=== PATIENT | male | born 1940 | race Caucasian/White ===

== ENCOUNTER 2019-11-05 18:19 | Inpatient (IN) | payer MEDICARE, OTHER ==
[~2019-11-05] VITALS: Ht 167.6 cm; Wt 67.6 kg
--- NOTE | 2019-11-05 19:11 | NUR ---
MEDICALLY CLEARED BY DR ELKINS.
[2019-11-05] MEDS ORDERED: MAGNESIUM HYDROXIDE 30 ML LIQUID UDC PO PRN (20:15)
--- NOTE | 2019-11-05 20:15 | NUR ---
Admit Pt to MHU under the care of Dr. Acharya and Dr. Banuelos.
[2019-11-05] MEDS ORDERED: LEVOTHYROXINE PO (20:16)
--- NOTE | 2019-11-05 20:26 | NUR ---
TRANSFERED TO [facility] VIA [facility]
--- NOTE | 2019-11-06 00:48 | NUR ---
GPS/Rn - Admit 79y/o male pt to MHU from ER, under the care Dr. Acharya, and Dr. Banuelos with Dx of Psychosis. Pt was accompanied by ER staff. Pt admitted on 5150 for GD. Upon face to face assessment/interview pt was very frantic and angry with staffs and was very irritated and saying he will pat this place over and over again. Pt was fixated on his belongings and refused to cooperate with staffs for proper inspection and or documentation. Pt became very angry when staffs told him he can not keep his belt on. Pt refused to sign admission docs and insist on keeping his things or have them in a safe box in front of him. Pt was reassured and had him signed his belongings and placed in envelop and sealed in front of him. Per Hold, Pt was found walking down the road and stated someone was trying to kill him, pt was delusional and was not able to held a conversation without paranoid and delusional. Pt was leaving in an unfit condition and was not able to care for self. Pt seems to have some insight into why he is hospitalized but insist he was leaving well and denied hearing voice. Hx are: BPH, Schizophrenia disorder, Psychosis. Possible Dementia with behavior disturbance. Pt Rights handbook and Advisement given and unit rules explained. Pt was still angry and refused handbook, will place in his bed side table for later review. Q/15mins head check initiated and safety precaution in place.
[2019-11-06 01:44] VITALS: BP 126/63
--- NOTE | 2019-11-06 06:00 | NUR ---
Dr Ellison paged through 9+ regarding medication reconciliation. Awaiting call back.
[2019-11-06] MEDS: LEVOTHYROXINE SODIUM 50 MCG TABLET PO SCH (06:43)
[2019-11-06 07:30] VITALS: BP 123/68
--- NOTE | 2019-11-06 11:15 | NUR ---
WEN Family Contact: This appeals writer contacted pt's brother to discuss treatment plan and discharge plan. Chris lives in [place] but is still involved in pt's care. Per pt's brother Chris ([phone]) stated pt resides in [facility]. Per brother, he would want pt to transition to a nursing facility. Per brother, he stated APS is involved and his corrections caseworker is Fuad ([phone]). Chris stated patient has isolated himself from family. Chris provided this appeals writer pt's daughters phone number Sabar ([phone]). This appeals writer contacted pt's daughter Sabra ([phone]) and discussed treatment plan and discharge plan. Sabra would want pt to transition to a halfway. She stated pt has been evicted from his home 3 days ago. Addendum: 11/06/19 at 1309 by WEN BURCIAGA Sabra is property owners daughter ([phone]) not pt's daughter.
--- NOTE | 2019-11-06 11:15 | NUR ---
WEN Initial Discharge Plan: Patient currently resides at [address] [address] ([phone]). Per pt's brother Chris ([phone]) stated pt resides in [place]. Per brother, he would want pt to transition to a nursing facility. Per brother, he stated APS is involved and his caseworker protective services is Fuad ([phone]). This selling underwriter contacted APS caseworker protective services Fuad ([phone]) and left a voicemail. Pt has a APS case open. This selling underwriter contacted pt's daughter Sabra ([phone]) and discussed treatment plan and discharge plan. This selling underwriter will work with the MD, Treatment, and family to help coordinate proper discharge plan. Addendum: 11/06/19 at 1309 by WEN BURCIAGA Sabra is property owners daughter ([phone]) not pt's daughter.
--- NOTE | 2019-11-06 11:18 | NUR ---
APS Case: This science writer contacted pt's APS casework manager Fuad ([phone]) and left a voicemail.
--- NOTE | 2019-11-06 11:21 | NUR ---
Firearms Report: Transformation Architect completed and submitted a [employer] firearms report for 5150 grave disability certification. A copy of report has been placed in patient chart.
[2019-11-06 11:48] LABS: CREATININE 0.9 mg/dL (0.6-1.3); MAGNESIUM 1.8 mg/dL (1.8-2.4); PHOSPHOROUS 2.7 mg/dL (2.5-4.9); POTASSIUM 3.8 mmol/L (3.5-5.1)
[2019-11-06 12:40] LABS: BASOPHILS % (AUTO) 0.7 % (0.0-2.0); EOSINOPHILS # (AUTO) 0.3 K/uL (0.0-0.7); EOSINOPHILS % (AUTO) 6.1 % (0.0-7.0); HEMATOCRIT 36.6 % (36.7-47.1); HEMOGLOBIN 12.8 g/dL (12.5-16.3); LYMPHOCYTES # (AUTO) 0.9 K/uL (20.0-40.0); LYMPHOCYTES % (AUTO) 21.7 % (20.5-51.5); MEAN CORPUSCULAR HEMOGLOBIN 31.5 uug (23.8-33.4); MEAN CORPUSCULAR HGB CONC 35 g/dL (32.5-36.3); MONOCYTES # (AUTO) 0.5 K/uL (2.0-10.0); MONOCYTES % (AUTO) 11.2 % (0.0-11.0); NEUTROPHILS # (AUTO) 2.6 K/uL (1.8-8.9); NEUTROPHILS % (AUTO) 60.3 % (38.5-71.5); PLATELET COUNT (AUTO) 356 K/uL (152-348); RED BLOOD CELL COUNT(AUTO) 4.07 MIL/uL (4.06-5.63); WHITE BLOOD COUNT (AUTO) 4.3 K/uL (3.6-10.2)
--- NOTE | 2019-11-06 13:09 | NUR ---
SW Property Freight Rate Clerk: This automobile service writer spoke with property van owner operator Natalie ([phone]) who stated that pt can not return back and has been residing in a [place] behind her property. He has been residing since December 2018 and has not been paying rent. Natalie reported that they have filed for a restraining order. Natalie stated her daughter Sabra ([phone]) has the documents and will fax it to this automobile service writer.
[2019-11-06 14:05] LABS: *BILIRUBIN,URIN NEGATIVE (NEGATIVE); *BLOOD, URINE NEGATIVE (NEGATIVE); *CLARITY,URINE CLEAR (CLEAR); *COLOR,URINE YELLOW (YELLOW); *KETONES,URINE NEGATIVE (NEGATIVE); *UROBILINOGEN,URINE 0.2 E.U./dl (NORMAL); LEUKOCYTE ESTERASE ,URINE NEGATIVE (NEGATIVE); NITRITE, URINE NEGATIVE (NEGATIVE); UGLUCOSE NEGATIVE (NEGATIVE)
[2019-11-06 16:00] VITALS: BP 137/75
[2019-11-06] MEDS: risperiDONE 0.5 MG TABLET PO SCH (20:36)
--- NOTE | 2019-11-06 20:37 | NUR ---
Pt refused his Risperdal. Stating he will not take any medication that his doctor doesn't recommend. He said it makes him drowsy and not able to walk.Pt in no acute distress. Will continue to monitor.
[2019-11-06] MEDS: MAG HYDROX/AL HYDROX/SIMETH 30 ML LIQUID UDC PO PRN (20:46)
[2019-11-06 20:48] VITALS: BP 120/69
[2019-11-07] MEDS: TEMAZEPAM 7.5 MG CAPSULE PO PRN ×2 (00:55→23:50)
[2019-11-07] MEDS: LEVOTHYROXINE SODIUM 50 MCG TABLET PO SCH ×2 (02:44→06:50)
[2019-11-07] MEDS: LORAZEPAM 1 MG TABLET PO PRN ×2 (02:44→11:40)
--- NOTE | 2019-11-07 06:58 | NUR ---
PT SLEPT 4.30 HOURS. PT IN NO ACUTE DISTRESS. PRESCRIBED MEDICATION GIVEN AND PT TOLERATED IT WELL. PT GIVEN PRN MAALOX FOR UPSET STOMACH. PT CONDITION IMPROVED AFTER AN HOUR. PT ALSO GIVEN RESTORIL AT 0055H FOR PT IS PACING THE HALLWAY AND DISTURBING OTHER PT. AFTER AN HOUR PT WENT BACK TO HIS BED BUT STILL AWAKE. AT 0244H PT GIVEN ATIVAN FOR RESTLESSNESS, AND ANXIOUS. AFTER 2 HOURS PT SLEEPING QUIETLY ON HIS BED. .SAFETY AND COMFORT PROVIDED. WILL ENDORSE TO INCOMING NURSE FOR CONTINUITY OF CARE.
[2019-11-07 08:00] VITALS: BP 145/87
[2019-11-07] MEDS: risperiDONE 0.5 MG TABLET PO SCH ×2 (08:40→21:00)
--- NOTE | 2019-11-07 10:34 | NUR ---
[facility] Referral: This public relations writer faxed clinicals to Jimbo kearney from [facility] ([phone]) for review. This public relations writer sent H & P, medication list, and laboratory.
[2019-11-07] MEDS: MAG HYDROX/AL HYDROX/SIMETH 30 ML LIQUID UDC PO PRN ×2 (11:40→23:50)
--- NOTE | 2019-11-07 11:41 | NUR ---
WEN Property It Senior Software Engineer Java Contact: This senior underwriter received restraining order paperwork from property analyst business analysis Natalie's ([phone]) daughter Sabra ([phone]). This senior underwriter placed in chart.
--- NOTE | 2019-11-07 11:48 | NUR ---
SW Discharge Plan: This teletypewriter installer spoke with Jimbo kearney from [facility] ([phone]) who stated pt is accepted.
--- NOTE | 2019-11-07 15:01 | NUR ---
APS Report: This press writer made an APS report (Intake ID [id number]) through [facility] due to pt neglecting care.
[2019-11-07 15:10] VITALS: BP 134/96
--- NOTE | 2019-11-07 15:45 | NUR ---
Gps/Silver Plater- Walks around, gait occ. gets unsteady , able to correct own gat when walking . Patient not getting along with his roommate , constant redirections for safety.
[2019-11-07 20:00] VITALS: BP 150/84
--- NOTE | 2019-11-07 21:53 | NUR ---
Received patient from day shift, walking around in his room. First words out of patients mouth were " I am going to be leaving now, my truck is outside ". This patient is confused and needs frequent reorientation. Patient also refuses to take medications despite educating and encouraging compliance. Patient to be found somewhat restless and guarded. Continuing to monitor for safety and to provide orientation to the situation as needed. No acute behavioral issues noted at this time.
[2019-11-08] MEDS: LORAZEPAM 1 MG TABLET PO PRN (00:26)
[2019-11-08] MEDS: LEVOTHYROXINE SODIUM 50 MCG TABLET PO SCH (06:06)
--- NOTE | 2019-11-08 06:54 | NUR ---
Patient slept 4.45 hours last night. Continuously getting up and down to the bathroom. Patient refused medication this AM. Continue to monitor for safety and to encourage medication compliance.
[2019-11-08 07:30] VITALS: BP 111/67
[2019-11-08] MEDS: risperiDONE 0.5 MG TABLET PO SCH ×2 (09:39→20:38)
[2019-11-08] MEDS: MAG HYDROX/AL HYDROX/SIMETH 30 ML LIQUID UDC PO PRN (11:38)
[2019-11-08 16:00] VITALS: BP 121/78
[2019-11-08 20:17] VITALS: BP 98/61
[2019-11-09] MEDS: LEVOTHYROXINE SODIUM 50 MCG TABLET PO SCH (06:38)
[2019-11-09 07:30] VITALS: BP 108/64
[2019-11-09] MEDS: risperiDONE 0.5 MG TABLET PO SCH ×2 (08:34→20:28)
[2019-11-09 16:00] VITALS: BP 128/79
[2019-11-09] MEDS: MAG HYDROX/AL HYDROX/SIMETH 30 ML LIQUID UDC PO PRN (16:05)
[2019-11-09 20:24] VITALS: BP 96/68
--- NOTE | 2019-11-09 20:28 | NUR ---
Patient refused Risperdal due.
[2019-11-10] MEDS: LEVOTHYROXINE SODIUM 50 MCG TABLET PO SCH (06:07)
--- NOTE | 2019-11-10 06:43 | NUR ---
GPS/RN: Slept 5.30 hours. Presented complaint of gastric discomforts the start of shift but not due yet for the next dose, got upset when he did not get one. Been in and out his room but no complaint presented. Able to take his AM meds without no problem.
[2019-11-10 07:30] VITALS: BP 119/66
[2019-11-10] MEDS: risperiDONE 0.5 MG TABLET PO SCH ×2 (09:00→20:18)
[2019-11-10] MEDS: MAG HYDROX/AL HYDROX/SIMETH 30 ML LIQUID UDC PO PRN (16:33)
[2019-11-10 16:59] VITALS: BP 148/90
[2019-11-10 20:22] VITALS: BP 112/55
[2019-11-10] MEDS: TEMAZEPAM 7.5 MG CAPSULE PO PRN (21:05)
[2019-11-11] MEDS: LORAZEPAM 1 MG TABLET PO PRN (01:35)
[2019-11-11] MEDS: ACETAMINOPHEN 325 MG TABLET PO PRN (01:36)
--- NOTE | 2019-11-11 05:15 | NUR ---
Received patient last night standing in doorway of his room complaining he was hungry. Snack provided and patient went to bed. Patient has refused his routine medications but was asking for a ' Pill to help me sleep ". PRN medication given with little to no effect. Patient was noted to be up and down all night with multiple requests. Patient has poor impulse control. Continuing to monitor for safety, and behavior escalation. This patient is noncompliant with medication despite education and encouragement.
[2019-11-11] MEDS: LEVOTHYROXINE SODIUM 50 MCG TABLET PO SCH (05:53)
[2019-11-11 07:30] VITALS: BP 120/76
[2019-11-11] MEDS: risperiDONE 0.5 MG TABLET PO SCH ×2 (09:00→20:45)
--- NOTE | 2019-11-11 13:25 | NUR ---
GPS: Nursing Notes: Non-compliance With Medications: Patient is awake and responding to his name, poor anger management, resistant with nursing care, loud and pressured speech, gets easily irritable when redirected, refusing his medications, believes that there is nothing wrong with him, stated "I am not crazy....", explained the pros and cons of medication, but continue to refuse the medication, argumentative with his roommate, stating that his roommate is taking his staff, redirected and setting limits, unable to formulate a viable plan for self care, continue with treatment plan.
--- NOTE | 2019-11-11 14:14 | NUR ---
Property Web Knitter Contact: Sabra ([phone]), property automotive glass mechanic, called and inquired about the pts discharge plan and inquired about whether or not it will be possible for the pt to return to the premises because she wanted to know if she should pursue with her charges. WEN informed her that the plan is to send the pt to SNF and that she cannot guarantee if he will leave or where he will go.
--- NOTE | 2019-11-11 14:20 | NUR ---
Family Contact: Pt's brother Chris ([phone]) called the SW and asked the SW where the pt is going to be discharged to. SW stated that she does not have a date at this time but the plan is for the pt to be discharged to [facility]. SW provided the pts brother with an address and a phone number.
[2019-11-11 15:45] VITALS: BP 102/64
[2019-11-11] MEDS: MAG HYDROX/AL HYDROX/SIMETH 30 ML LIQUID UDC PO PRN (19:28)
[2019-11-11 20:31] VITALS: BP 112/62
--- NOTE | 2019-11-12 00:22 | NUR ---
Patient first observed pacing the hallway with disheveled appearance, alert and oriented to name, time, and situation. Patient refused all HS medication. Requires frequent redirection. Vitals wnl, denies pain. Patient is unable to formulate care for self. Continue to monitor Q 15 minutes as well as provide a safe environment.
[2019-11-12] MEDS: LEVOTHYROXINE SODIUM 50 MCG TABLET PO SCH (06:15)
[2019-11-12 07:30] VITALS: BP 122/59
[2019-11-12] MEDS: risperiDONE 0.5 MG TABLET PO SCH ×2 (09:00→21:00)
--- NOTE | 2019-11-12 11:50 | NUR ---
Family Contact: Pt's brother Chris ([phone]) called the SW and the SW informed him that the pts MD filed for a Riese as the pt has not been taking his medications. SW stated that the pt remains delusional, paranoid and disoriented. SW stated that if the pt becomes riesed he many show improvement after a few days and then be discharged to [facility].
[2019-11-12] MEDS: MAG HYDROX/AL HYDROX/SIMETH 30 ML LIQUID UDC PO PRN (11:56)
--- NOTE | 2019-11-12 13:56 | NUR ---
GPS: Nursing Notes: Non-compliance With Medications: Patient awake and responding to his name, poor anger management, resistant with nursing care, believes that the staff is crazy, "I am not taking a shower.. You are crazy..", continue to refuse his Risperdal PO, stated "My doctor told me not to take that medication, "I am not crazy.. I can only take Synthroid...", unable to formulate a viable plan for self care, loud and angry affect, continue with treatment plan.
[2019-11-12 16:28] VITALS: BP 126/78
[2019-11-12 19:57] VITALS: BP 114/50
--- NOTE | 2019-11-12 21:25 | NUR ---
patient noted awake A/O x 2. continue refusing Risperdal. Will continue to offer. Temazepam 7.5 mg PO PRN was offered to patient and he was able to take PO PRN medication. Safety and fall precaution in place. V/S stable. Pt is reassured for his safety. will continue to monitor.
--- NOTE | 2019-11-12 22:00 | NUR ---
Patient noted most of the time in his room. he is noted A/O x 2. Continue Refusing Risperdal QHS. patient was provided with education about the importance of taking prescribed medication to improve his sxs. yet, refused. pt is easily redirectable. Denies SI/HI/VH/AH he is able to verbalized feelings.
[2019-11-12] MEDS: TEMAZEPAM 7.5 MG CAPSULE PO PRN (22:23)
[2019-11-12] MEDS: LORAZEPAM 1 MG TABLET PO PRN (23:27)
--- NOTE | 2019-11-13 03:55 | NUR ---
patient noted in the hallway asking for multiple requests. "I need my clothes, I need to shave". "They are already outside, you just need to open the door." Patient was redirected, but he stated, "My friends are listening to our conversation, They know when to come in". Patient noted delusional, he requires multiple redirections. will continue to monitor.
[2019-11-13] MEDS: LEVOTHYROXINE SODIUM 50 MCG TABLET PO SCH (07:01)
[2019-11-13 07:30] VITALS: BP 117/60
[2019-11-13 07:44] LABS: CREATININE 0.9 mg/dL (0.6-1.3); POTASSIUM 4.3 mmol/L (3.5-5.1)
[2019-11-13 07:50] LABS: BASOPHILS % (AUTO) 0.2 % (0.0-2.0); EOSINOPHILS # (AUTO) 0.2 K/uL (0.0-0.7); HEMATOCRIT 42.6 % (36.7-47.1); HEMOGLOBIN 14.4 g/dL (12.5-16.3); LYMPHOCYTES # (AUTO) 1.3 K/uL (20.0-40.0); LYMPHOCYTES % (AUTO) 27.3 % (20.5-51.5); MEAN CORPUSCULAR HEMOGLOBIN 30.7 uug (23.8-33.4); MEAN CORPUSCULAR HGB CONC 34 g/dL (32.5-36.3); MEAN CORPUSCULAR VOLUME 90.8 fL (73.0-96.2); MONOCYTES # (AUTO) 0.5 K/uL (2.0-10.0); MONOCYTES % (AUTO) 10.9 % (0.0-11.0); NEUTROPHILS # (AUTO) 2.8 K/uL (1.8-8.9); NEUTROPHILS % (AUTO) 56.6 % (38.5-71.5); PLATELET COUNT (AUTO) 241 K/uL (152-348); RED BLOOD CELL COUNT(AUTO) 4.69 MIL/uL (4.06-5.63); WHITE BLOOD COUNT (AUTO) 4.9 K/uL (3.6-10.2)
[2019-11-13] MEDS: risperiDONE 0.5 MG TABLET PO SCH (09:00)
[2019-11-13] MEDS: MAG HYDROX/AL HYDROX/SIMETH 30 ML LIQUID UDC PO PRN ×2 (14:51→21:06)
[2019-11-13 16:00] VITALS: BP 105/52
[2019-11-13] MEDS ORDERED: HALOPERIDOL LACTATE 5 MG/1 ML VIAL IM PRN (18:30)
[2019-11-13 19:57] VITALS: BP 117/79
--- NOTE | 2019-11-13 20:20 | NUR ---
Per Dr Acharya, it is okay to change time of medication form Haldol 1mg PO TID to Haldol 1mg PO BID and QHS. order was noted. will continue to monitor,
--- NOTE | 2019-11-13 20:36 | NUR ---
Received patient in the hallway, he is noted A/O x 1. He is able to ambulate with slow but steady gait. He is noted hyperverbal, paranoid ideation, rambling about different things. asking to be shaved. Patient is somewhat redirectable. He is reassured for his safety. safety and fall precaution in places. V/S stable at this time. Will continue to monitor.
[2019-11-13] MEDS: TEMAZEPAM 7.5 MG CAPSULE PO PRN (21:33)
--- NOTE | 2019-11-13 22:00 | NUR ---
Patient Continue Refusing Haldol 1mg PO QHS. he threw the pill on the floor. Patient was provided with education about the importance of taking prescribed medication to improve his sxs. Pt is reise so, if he continue refusing PO haldol, he will get the Haldol 1mg IM as prescribed by Dr Acharya. pt was made aware of that and his reise. pt is easily irritable, continue hyperverbal. "No, I will not take anything that will alter my mind". "You are not injecting anything on me, I will fight". Pt requires multiple redirections.
[2019-11-13] MEDS: HALOPERIDOL 1 MG TABLET PO SCH (23:19)
--- NOTE | 2019-11-13 23:20 | NUR ---
Patient continue refusing Haldol 1mg PO QHS. Haldol 1mg IM was prepared. Security staff was called to assist with the injection has patient got aggressive. then, he stated, "Okay, I will take the pill, give it to me, I don't want the injection". pt was able to comply with Haldol 1mg PO. we will continue to monitor closely.
[2019-11-14] MEDS: LEVOTHYROXINE SODIUM 50 MCG TABLET PO SCH (06:23)
--- NOTE | 2019-11-14 06:46 | NUR ---
Patient slept for approx 2.30 hrs through the night. He was observed coming in-and-out of his room throughout the night. He refused Ativan 1mg PO PRN. will continue to monitor.
[2019-11-14 07:30] VITALS: BP 117/71
[2019-11-14] MEDS ORDERED: HALOPERIDOL 1 MG TABLET PO SCH (09:00)
[2019-11-14] MEDS: HALOPERIDOL 1 MG TABLET PO SCH ×3 (09:28→20:01)
[2019-11-14 16:21] VITALS: BP 131/69
--- NOTE | 2019-11-14 17:00 | NUR ---
Gps/Poultry Pathologist- Remains with hesitancy to take his routine haldol, , claimed he does not need it " my Doctor will go to senior living including all of you, i am calling the Tip Printer ".Reviewed with pt. rationale of his med. patient does not want to listen , instead argues with the staff., irritable, yelling at the staff.
--- NOTE | 2019-11-15 05:09 | NUR ---
Patient slept on and off last night. Up during the night with food requests. Patient is paranoid about some of the other patients taking his stuff. Patient was seen talking to self, when asked who he was talking to, he stated " The monitoring station". Physiology Teacher had a difficult time getting the patient to take his PO Psychiatric medication last night. Patient was argumentative and resistant to taking medication but eventually took the medication. Continuing to monitor patient for safety, behavior escalation and compliance.
[2019-11-15] MEDS: LEVOTHYROXINE SODIUM 50 MCG TABLET PO SCH (05:57)
[2019-11-15 07:30] VITALS: BP 125/65
[2019-11-15] MEDS: HALOPERIDOL 1 MG TABLET PO SCH ×3 (08:46→20:12)
[2019-11-15 15:29] VITALS: BP 111/63
[2019-11-15] MEDS: MAG HYDROX/AL HYDROX/SIMETH 30 ML LIQUID UDC PO PRN (15:51)
[2019-11-15 19:48] VITALS: BP 110/58
[2019-11-16] MEDS: LEVOTHYROXINE SODIUM 50 MCG TABLET PO SCH (06:04)
[2019-11-16 07:30] VITALS: BP 107/65
[2019-11-16] MEDS: HALOPERIDOL 1 MG TABLET PO SCH ×4 (08:10→20:13)
--- NOTE | 2019-11-16 10:49 | NUR ---
received patient pacing in the hallway, being needy , asking for several things, irritable,delusional thinking somebody is going to get him and waithng out side the hospital, patient re orient with reality , patient took his medication, will continue medication
[2019-11-16 14:51] LABS: BASOPHILS % (AUTO) 0.7 % (0.0-2.0); EOSINOPHILS # (AUTO) 0.2 K/uL (0.0-0.7); EOSINOPHILS % (AUTO) 3.1 % (0.0-7.0); HEMATOCRIT 44.7 % (36.7-47.1); HEMOGLOBIN 15.2 g/dL (12.5-16.3); LYMPHOCYTES # (AUTO) 1.4 K/uL (20.0-40.0); LYMPHOCYTES % (AUTO) 19.8 % (20.5-51.5); MEAN CORPUSCULAR HEMOGLOBIN 30.9 uug (23.8-33.4); MEAN CORPUSCULAR HGB CONC 34 g/dL (32.5-36.3); MEAN CORPUSCULAR VOLUME 90.8 fL (73.0-96.2); MONOCYTES # (AUTO) 0.7 K/uL (2.0-10.0); MONOCYTES % (AUTO) 9.7 % (0.0-11.0); NEUTROPHILS # (AUTO) 4.7 K/uL (1.8-8.9); NEUTROPHILS % (AUTO) 66.7 % (38.5-71.5); PLATELET COUNT (AUTO) 241 K/uL (152-348); RED BLOOD CELL COUNT(AUTO) 4.92 MIL/uL (4.06-5.63)
[2019-11-16] MEDS: MAG HYDROX/AL HYDROX/SIMETH 30 ML LIQUID UDC PO PRN ×2 (14:57→19:35)
[2019-11-16 15:04] LABS: BILIRUBIN,TOTAL 0.4 mg/dL (0.2-1.0); POTASSIUM 4.4 mmol/L (3.5-5.1); TOTAL PROTEIN, SERUM 8.2 g/dL (6.4-8.2)
[2019-11-16 15:57] LABS: *BILIRUBIN,URIN NEGATIVE (NEGATIVE); *BLOOD, URINE NEGATIVE (NEGATIVE); *CLARITY,URINE CLEAR (CLEAR); *COLOR,URINE YELLOW (YELLOW); *KETONES,URINE NEGATIVE (NEGATIVE); *UROBILINOGEN,URINE 0.2 E.U./dl (NORMAL); LEUKOCYTE ESTERASE ,URINE NEGATIVE (NEGATIVE); NITRITE, URINE NEGATIVE (NEGATIVE); PH,URINE 7.5 (5.0-8.0); UGLUCOSE NEGATIVE (NEGATIVE)
[2019-11-16 16:00] VITALS: BP 123/68
--- NOTE | 2019-11-16 18:13 | NUR ---
patient been compliant, calm however easily irritable and constantly complaining with alot of stuff, needed some prompting and redirection, no distress, Safety was observed the whole time
--- NOTE | 2019-11-16 18:42 | NUR ---
spoke with patient regarding flu vaccine, patient agreed and gave consent to have flu shot, called and spoke with MD with orders made and carried out
[2019-11-16] MEDS ORDERED: INFLUENZA VACCINE 2020-2021 0.5 ML DISP.SYRIN IM ONE (18:45)
[2019-11-16] MEDS: LORAZEPAM 1 MG TABLET PO PRN ×2 (19:35→23:29)
[2019-11-16 20:00] VITALS: BP 110/53
[2019-11-16] MEDS: TEMAZEPAM 7.5 MG CAPSULE PO PRN (21:11)
[2019-11-16] MEDS: ACETAMINOPHEN 325 MG TABLET PO PRN (23:03)
--- NOTE | 2019-11-17 04:03 | NUR ---
Received patient at beginning of the shift in the duong, asking for many things. As the night progressed, so did the requests. Limit setting attempted with little results. After patient received a sleeping medication, he remained awake essentially all night so far. Coming in and out of the room, very confused the whole shift. Delusional thoughts about the "Administrative Library Assistant are coming to spring me out of this place very early in the morning". Reorientation and redirection provided. Hotel Housekeeper unable to have meaningful conversation with the patient d/t patient only talks, does not listen and becomes very argumentative if delusions are challenged. Continuing to monitor for safety and behavior escalation at this time.
[2019-11-17] MEDS: LEVOTHYROXINE SODIUM 50 MCG TABLET PO SCH (06:05)
[2019-11-17 07:30] VITALS: BP 122/71
[2019-11-17] MEDS: HALOPERIDOL 1 MG TABLET PO SCH ×4 (08:47→21:24)
[2019-11-17 15:11] VITALS: BP 116/68
--- NOTE | 2019-11-17 17:31 | NUR ---
PT ANXIOUS AND DELUSIONAL. REQUIRES EXTENSIVE REINFORCEMENT WITH MEDICATIONS. STATES DOCTOR IS TRYING TO USE "MIND CONTROL DRUGS" ON HIM, AND THAT HE WILL ANDREY THE HOSPITAL BECAUSE "THE BUSINESS PERFORMANCE MANAGER DEPT IS ON MY SIDE AND THEY'RE COMING TO ARREST YOU FOR ELDER ABUSE."REORIENTED TO REALITY. PT REMAINS NEEDY, DEMANDING, AND EASILY IRRITABLE.
[2019-11-17 20:02] VITALS: BP 120/64
--- NOTE | 2019-11-17 20:30 | NUR ---
Received patient in the dayroom. He is noted A/O x 2. He is noted with poor insight and judgment into his admission to MHU. Upon interview, she stated, "I am here because that person lie about me. She is the one in alf now". "I am going to pat this place, they are giving me mind controlling pills". patient noted easily irritable but he is redirectable. Pt is reassured for her safety. V/S stable. Safety and fall precautions in place. will continue to monitor.
[2019-11-17] MEDS: TEMAZEPAM 7.5 MG CAPSULE PO PRN (22:36)
[2019-11-17] MEDS: MAG HYDROX/AL HYDROX/SIMETH 30 ML LIQUID UDC PO PRN (22:36)
[2019-11-18] MEDS: LEVOTHYROXINE SODIUM 50 MCG TABLET PO SCH (06:56)
--- NOTE | 2019-11-18 07:02 | NUR ---
patient slept for approx 5hrs through the night. She refused Blood Drawn. pt was educated on the importance of labs, yet refused. will attempt later.
[2019-11-18 07:30] VITALS: BP 122/59
[2019-11-18] MEDS: HALOPERIDOL 1 MG TABLET PO SCH ×4 (08:36→20:02)
--- NOTE | 2019-11-18 18:47 | NUR ---
received is alert and oriented, he easily iritable, confused wanting to go out of the unit, denies SI and HI ,took medication will continue close monitoring.
[2019-11-18] MEDS ORDERED: HALOPERIDOL LACTATE 5 MG/1 ML VIAL IM PRN ×2 (19:00→23:00)
[2019-11-18 20:33] VITALS: BP 118/64
[2019-11-19] MEDS: TEMAZEPAM 7.5 MG CAPSULE PO PRN (02:00)
[2019-11-19] MEDS: LEVOTHYROXINE SODIUM 50 MCG TABLET PO SCH (07:23)
[2019-11-19 07:30] VITALS: BP 124/61
[2019-11-19] MEDS: BENZTROPINE MESYLATE 0.5 MG TABLET PO SCH ×3 (08:24→16:10)
[2019-11-19] MEDS: VALPROIC ACID 250 MG/5 ML LIQUID UDC PO SCH ×2 (08:24→20:15)
[2019-11-19] MEDS ORDERED: HALOPERIDOL LACTATE 5 MG/1 ML VIAL IM PRN ×3 (09:00→21:00)
[2019-11-19] MEDS ORDERED: HALOPERIDOL 1 MG TABLET PO SCH ×2 (09:00)
[2019-11-19] MEDS ORDERED: HALOPERIDOL 2 MG TABLET PO SCH (09:00)
[2019-11-19 16:28] VITALS: BP 119/63
[2019-11-19] MEDS: MAG HYDROX/AL HYDROX/SIMETH 30 ML LIQUID UDC PO PRN (16:32)
[2019-11-19] MEDS: HALOPERIDOL 2 MG TABLET PO SCH ×2 (16:33→20:13)
--- NOTE | 2019-11-19 16:50 | NUR ---
patient is easily irritable, confused wanting to go out of the unit, denies SI and HI ,took medication with prompting yelling at nurse while given medication.
[2019-11-19 20:10] VITALS: BP 133/81
--- NOTE | 2019-11-19 22:59 | NUR ---
GPS: Pt.is asleep at this time. Continues to be paranoid,grandiose,easily irritable and agitated. Poor insight to present situation. Safety emphasized. Will continue to monitor.
[2019-11-20] MEDS: LEVOTHYROXINE SODIUM 50 MCG TABLET PO SCH (06:20)
--- NOTE | 2019-11-20 06:41 | NUR ---
GPS: Pt.refused scheduled blood drawing this am despite explanation of risks vs.benefits x3. Pt. is easily irritable when being persuaded.
[2019-11-20 07:30] VITALS: BP 118/66
[2019-11-20] MEDS: BENZTROPINE MESYLATE 0.5 MG TABLET PO SCH ×3 (08:06→17:00)
[2019-11-20] MEDS: VALPROIC ACID 250 MG/5 ML LIQUID UDC PO SCH ×2 (08:06→20:52)
[2019-11-20] MEDS ORDERED: HALOPERIDOL 5 MG TABLET PO SCH (09:00)
--- NOTE | 2019-11-20 10:53 | NUR ---
called and verify order with Dr. Acharya,regarding Haldol decanoate 50mg IM start today and given Qmonthly , orders made and carried out
[2019-11-20] MEDS: MAG HYDROX/AL HYDROX/SIMETH 30 ML LIQUID UDC PO PRN (11:13)
[2019-11-20] MEDS ORDERED: HALOPERIDOL DECANOATE 50 MG/1 ML AMPUL IM ONE (11:30)
[2019-11-20 16:00] VITALS: BP 120/69
[2019-11-20] MEDS ORDERED: HALOPERIDOL LACTATE 5 MG/1 ML VIAL IM PRN (17:00)
[2019-11-20] MEDS: HALOPERIDOL 5 MG TABLET PO SCH ×2 (17:05→20:46)
--- NOTE | 2019-11-20 18:10 | NUR ---
received is alert and oriented, he easily irritable, confused, Haldol Decanoate 50 mg im given,denies SI and HI ,took medication will continue close monitoring.
[2019-11-20 20:21] VITALS: BP 128/50
[2019-11-21] MEDS: TEMAZEPAM 7.5 MG CAPSULE PO PRN (01:38)
[2019-11-21] MEDS: LEVOTHYROXINE SODIUM 50 MCG TABLET PO SCH (06:58)
[2019-11-21 07:30] VITALS: BP 115/74
[2019-11-21] MEDS: BENZTROPINE MESYLATE 0.5 MG TABLET PO SCH ×2 (08:31→12:57)
[2019-11-21] MEDS: HALOPERIDOL 5 MG TABLET PO SCH (08:31)
[2019-11-21] MEDS: VALPROIC ACID 250 MG/5 ML LIQUID UDC PO SCH ×2 (08:32→08:39)
--- NOTE | 2019-11-21 09:24 | NUR ---
SW Discharge Note: Patient will be discharged to assisted facility, [facility], [place] [address]; ) via Ambulance transportation at 3PM. Globe Changer [facility]; ([phone]), who stated patient will be accepted back at facility today. Per brother Chris, ([phone]) has been made aware and agreeable with discharge plans. Patient is alert and oriented x1-2 and is unable to plan for self-care. Patient denies any suicidal or homicidal ideations. Patient is aware and agreeable with discharge plans. Patient will continue to follow-up with (Psychiatrist) Dr. Acharya and (Scaffolding Helper) Dr. Saldaña at [facility] [id number] [place] [address], [place] [address]; ). Patient presents with euthymic mood and congruent affect.
--- NOTE | 2019-11-21 13:51 | NUR ---
Gps/Product Safety Officer- Discharge planning in progress, patient and his Brother Chris was well informed.
--- NOTE | 2019-11-21 14:22 | NUR ---
Gps/Fire Hazard Inspector- Informed patient about his discharged plan to go to [facility], patient started to get upset, claimed he is going to [place], [place]. and is coming to bring his clothes to wear and will transport him back home. Informed [facility] was planned for his discharge , patient was argumentative , Digital Media Manager was informed of behavior.
--- NOTE | 2019-11-21 14:43 | NUR ---
Gps/Car Driver-Patient is confused, talking to himself, ,claimed he is talking to the Pack Master that supposed to pick him up. , trying to redirect him to where he is .
--- NOTE | 2019-11-21 15:00 | NUR ---
Gps/Upholstery Mechanic- Called [facility], report given to Ventura Echevarria. Informed of cotton picker time at [facility] ambulance.All belongings , valuables packed kept in the Nurses station ready when ambulance arrived.
[2019-11-21 16:07] VITALS: BP 135/86
--- NOTE | 2019-11-21 17:30 | NUR ---
Gps/Anesthesia Technician-Patient hesitancy to get into the gurney when [facility] ambullance came in to pick him up. Patient barricade self with the bedside table,. Talked to patient calmly, explained that he will be taking icare of at [facility] better place for him. Patient insisted he needs to go back home to [place]. Patient was able to calmed down after 30 minutes of talking to patient and reassurance given.Patient finally got into the gurney. All belongings and valuable given back to patient, refusing to sign belongings papers, 2 staff signed .
--- NOTE | 2019-11-21 17:45 | NUR ---
Gps/Content Production Specialist- Discharged to [facility], via [facility] ambulance, in no signs of any distress.
[2019-12-19] MEDS ORDERED: HALOPERIDOL DECANOATE 50 MG/1 ML AMPUL IM ONE (09:00)
== END 2019-11-21 17:45 | DRG 885 ==
LOC: ER 18:19 → GPS 19:53
PROVIDERS: ADMIT Psychiatry & Neurology Psychiatry; ATTEND Registered Nurse
DX: F29 Unspecified psychosis not due to a substance or known physiological condition (principal); F03.91 Unspecified dementia, unspecified severity, with behavioral disturbance; F23 Brief psychotic disorder; E03.9 Hypothyroidism, unspecified; Z96.642 Presence of left artificial hip joint; E86.0 Dehydration; F39 Unspecified mood [affective] disorder; N40.0 Benign prostatic hyperplasia without lower urinary tract symptoms; Z59.0 Homelessness; Z91.19 Patient's noncompliance with other medical treatment and regimen; Z73.6 Limitation of activities due to disability; Z85.79 Personal history of other malignant neoplasms of lymphoid, hematopoietic and related tissues
CPT/HCPCS: 36415; 71045; 83735; 84100; 84443; 85025; 87086; 90686; A4663; J1630; J1631

== ENCOUNTER 2020-06-05 20:32 | Inpatient (IN) | payer MEDICARE, OTHER ==
[~2020-06-05] VITALS: Ht 170.2 cm; Wt 68.5 kg
[~2020-06-05 20:32] MED LIST: LEVOTHYROXINE PO
[2020-06-05] MEDS ORDERED: LEVO125C4 PO (20:49)
[2020-06-05] MEDS ORDERED: QUET25TA PO (20:49)
[2020-06-05] MEDS ORDERED: PENT400T17 PO (20:51)
[2020-06-05 21:06] LABS: *BILIRUBIN,URIN NEGATIVE (NEGATIVE); *BLOOD, URINE NEGATIVE (NEGATIVE); *CLARITY,URINE CLEAR (CLEAR); *COLOR,URINE YELLOW (YELLOW); *KETONES,URINE NEGATIVE (NEGATIVE); *UROBILINOGEN,URINE 0.2 E.U./dl (NORMAL); LEUKOCYTE ESTERASE ,URINE NEGATIVE (NEGATIVE); NITRITE, URINE NEGATIVE (NEGATIVE); PH,URINE 5.5 (5.0-8.0); UGLUCOSE NEGATIVE (NEGATIVE)
--- NOTE | 2020-06-05 22:01 | NUR ---
Report given - Patiento be transferred to Room 145-C pending Negative COVID result.
[2020-06-05] MEDS ORDERED: BLOOD SUGAR DIAGNOSTIC 1 EACH STRIP VI ONE (22:15)
[2020-06-05] MEDS ORDERED: MAGNESIUM HYDROXIDE 30 ML LIQUID UDC PO PRN (22:15)
--- NOTE | 2020-06-05 22:35 | NUR ---
Patient taken to Room 145-C. Belongings with patient. VSS. Old record given to discharge door operator.
--- NOTE | 2020-06-05 22:45 | NUR ---
Gps/Director Surgical- Admitted a 80 years old male via gurney from ER, alert, oriented x 3, from [place] [facility] . Extremely anxious, argumentative, delusional and hyperverbal. Able to provide simple answers to simple question. Admitted as Gravely Disabled under KINGA Castellanos. Patient is disorganized thought process and labile affect , [place] , irritability expresses non adherence. Patient verbalized wanting to leave the hospital tonight. unable to get a clear history. Routine admission care done. assisted in bed.unit orientation provided. bed alarm on.
--- NOTE | 2020-06-06 06:02 | NUR ---
GPS: Remain cooperative with meds,uncooperative with care. slept 5.15 hrs through the night. resting in bed comfortably. continue plan of care.
[2020-06-06] MEDS: LEVOTHYROXINE SODIUM 125 MCG TABLET PO SCH (06:06)
[2020-06-06 07:30] VITALS: BP 106/72
[2020-06-06 08:03] LABS: BILIRUBIN,TOTAL 0.4 mg/dL (0.2-1.0); POTASSIUM 3.9 mmol/L (3.5-5.1)
[2020-06-06] MEDS: PENTOXIFYLLINE 400 MG TABLET.SA PO SCH (09:16)
[2020-06-06] MEDS: HALOPERIDOL 2 MG TABLET PO SCH ×2 (14:30→20:00)
--- NOTE | 2020-06-06 15:30 | NUR ---
patient refused the Psych medication verbalizes that he only takes is his thyroid medication, patient verbalizes that he will not take mind altering medication
[2020-06-06 16:02] VITALS: BP 91/66
--- NOTE | 2020-06-06 16:54 | NUR ---
made aware of patient being non compliant with the medication
[2020-06-06 20:00] VITALS: BP 117/78
[2020-06-06] MEDS: DIVALPROEX SPRINKLE 125 MG CAP.SPRINK PO SCH (20:00)
--- NOTE | 2020-06-07 05:59 | NUR ---
GPS: Remain cooperative with meds, uncooperative with care. slept 7.15 hrs through the night. resting in bed comfortably. continue plan of care.
[2020-06-07] MEDS: LEVOTHYROXINE SODIUM 125 MCG TABLET PO SCH (06:02)
--- NOTE | 2020-06-07 06:05 | NUR ---
CORRECTION: STILL REMAINS NON-COMPLIANT WITH PSYCH.MEDS WHEN OFFERED X3.
[2020-06-07 07:30] VITALS: BP 125/80
[2020-06-07] MEDS: DIVALPROEX SPRINKLE 125 MG CAP.SPRINK PO SCH ×3 (08:00→20:00)
[2020-06-07] MEDS: HALOPERIDOL 5 MG TABLET PO SCH ×3 (08:00→20:00)
[2020-06-07] MEDS: PENTOXIFYLLINE 400 MG TABLET.SA PO SCH (08:24)
--- NOTE | 2020-06-07 11:18 | NUR ---
PT IS PARANOID AND DELUSIONAL. REFUSED CT SCAN. STATES IT IS A PLOY FROM NURSES TO "KEEP ME HERE LONGER". STATES HE NEEDS TO LEAVE BECAUSE HE OWNS A HOUSE AND HAS BUSINESS TO ATTEND TO THAT INVOLVES THE CREEL OPERATOR. PT IS EASILY AGITATED AND IRRITABLE. CONTINUES TO REFUSE ALL PO MEDICATIONS.
[2020-06-07 15:12] VITALS: BP 117/79
--- NOTE | 2020-06-07 17:49 | NUR ---
patient remains paranoid and delusional refused all psych.medication,he state that " i don't need any mental pills".
[2020-06-07 20:07] VITALS: BP 119/77
--- NOTE | 2020-06-07 21:00 | NUR ---
RECEIVED PATIENT IN HIS ROOM. HE IS NOTED AWAKE A/O X 2. POOR INSIGHT AND JUDGMENT IS NOTED TO THE REASON FOR HIS ADMISSION TO [facility]HU. PATIENT STATED, "I AM HERE BECAUSE SOMEONE MAKE UP LIES ABOUT ME. I AM HAVING MY CHURN DRILL OPERATOR COME IN THE MORNING TO BRING ME BACK HOME". PATIENT ALSO REFUSED ALL HIS [facility]ICATIONS. PATIENT WAS INFORMED OF THE IMPORTANCE OF TAKING HIS MEDICATION ON ORDER TO IMPROVED HIS SYMPTOMS YET REFUSED. HE STATED, "I DON'T TAKE MIND-ALTERING MEDICATIONS". PATIENT IS REASSURED FOR HIS SAFETY, SAFETY AND FALL PRECAUTION IN PLACE. V/S STABLE, WILL CONTINUE TO MONITOR.
[2020-06-08] MEDS: LEVOTHYROXINE SODIUM 125 MCG TABLET PO SCH (06:10)
[2020-06-08 07:30] VITALS: BP 146/90
--- NOTE | 2020-06-08 07:30 | NUR ---
Received report from DONALD Stanley. All questions, comments, and concerns were addressed. Received patient awake, alert and oriented. Bed is in low and locked position.
[2020-06-08] MEDS: DIVALPROEX SPRINKLE 125 MG CAP.SPRINK PO SCH ×3 (08:00→20:00)
[2020-06-08] MEDS: HALOPERIDOL 5 MG TABLET PO SCH ×3 (08:00→20:00)
[2020-06-08] MEDS: PENTOXIFYLLINE 400 MG TABLET.SA PO SCH (08:03)
--- NOTE | 2020-06-08 09:33 | NUR ---
SW Initial Discharge Plan: Patient is currently homeless. Patient's brother Chris ([phone]) is involved with patient's care. This SW left a voicemail to discuss treatment and discharge plan. Patient will require a nursing facility. This SW will work with the MD, treatment team, and family to help coordinate proper discharge plan.
--- NOTE | 2020-06-08 09:34 | NUR ---
SW Family Contact: This SW contacted patient's brother Chris ([phone]) and this SW left a voicemail to discuss treatment and discharge plan.
--- NOTE | 2020-06-08 09:34 | NUR ---
Firearms Report: Deicer Kit Assembler completed and submitted a [employer] firearms report for 5150 grave disability certification. A copy of report has been placed in patient chart.
--- NOTE | 2020-06-08 11:19 | NUR ---
SW Family Contact: This SW received a phone call from patient's brother Chris ([phone]) and discussed treatment and discharge plan. Per brother Chris, he stated that he has not heard from his brother for the past month. He stated that pt will require a nursing facility. Patient's brother is involved in his care, however, he resides in [place] and it is limited for him to help much.
[2020-06-08 15:46] VITALS: BP 108/66
--- NOTE | 2020-06-08 18:53 | NUR ---
patient is alert and oriented. patient is anxious, restless, guarded, dismissive, and becomes easily agitated. patient denies SI/HI, denies AH/VH but noted with paranoid and grandiose delusions. Patient believes that the poising inspector and government agencies will come take him from this unit back to his "mansion". patient is preoccupied with being discharged, constantly asking for his belongings and to be let off the unit. patient provided with redirection and reality orientation multiple times. patient encouraged to participate in unit groups and therapeutic milieu. patient provided with education about impulse control.
[2020-06-08 20:00] VITALS: BP 97/65
--- NOTE | 2020-06-09 04:22 | NUR ---
Pt asleep at this time, no s/s of distress. Denies SI and pain. Refused meds, saying he only wants to go home. Meds offered times, with this RN explaining importance of compliance but pt kept refusing. Per Dr. Andrade's order and day shift nurse's endorsement, education sheets Depakote and Haldol were printed and provided to pt. Safety precautions in place, frequent rounds done to ensure safety. Addendum: 06/09/20 at 0427 by EDUARDO CAIN RN Pt asleep at this time, no s/s of distress. Denies SI and pain. Refused meds, saying he only wants to go home. Meds offered multiple times, with this RN explaining importance of compliance but pt kept refusing. Per Dr. Andrade's order and day shift nurse's endorsement, education sheets Depakote and Haldol were printed and provided to pt. Safety precautions in place, frequent rounds done to ensure safety.
[2020-06-09] MEDS: LEVOTHYROXINE SODIUM 125 MCG TABLET PO SCH (06:24)
[2020-06-09 07:30] VITALS: BP 108/69
[2020-06-09] MEDS: DIVALPROEX SPRINKLE 125 MG CAP.SPRINK PO SCH ×4 (08:00→20:00)
[2020-06-09] MEDS: HALOPERIDOL 5 MG TABLET PO SCH ×4 (08:00→16:48)
[2020-06-09] MEDS: ENSURE ENLIVE (VAN) 240 ML LIQUID PO SCH (08:59)
[2020-06-09] MEDS: PENTOXIFYLLINE 400 MG TABLET.SA PO SCH (09:09)
--- NOTE | 2020-06-09 13:38 | NUR ---
Public Guardian Contact: This SW received a voicemail from Deltarenée South from public guardian office ([phone]) who stated that they are in the process of conserving pt and that APS classification case manager Taty is working on pt's case. This SW contacted [employer] to gather more information.
--- NOTE | 2020-06-09 13:43 | NUR ---
Individual Therapy: recreation worker met with patient for brief counseling to help address patient's presenting problem disorganized thought content. Patient is unable to engage in a meaningful conversation and was resistant to accepting support from this automobile service writer. Patient appeared paranoid and delusional stating "people brought me here for no reason".
--- NOTE | 2020-06-09 14:16 | NUR ---
Public Guardian Contact: This SW received a voicemail from Austinrenée South from public guardian office ([phone]) who stated that they are in the process of conserving pt and that APS correctional case records supervisor Taty is working on pt's case. She reported that correctional case records supervisor Taty will contact this SW if needed. Austin requested pt's clinicals and this SW faxed it to ([phone]).
[2020-06-09 15:38] VITALS: BP 110/70
--- NOTE | 2020-06-09 16:20 | NUR ---
Court Hearing: Patient's court hearing was today and it was upheld for GD.
[2020-06-09] MEDS: HALOPERIDOL LACTATE 5 MG/1 ML VIAL IM PRN (16:47)
--- NOTE | 2020-06-09 17:02 | NUR ---
patient has court hearing for riese is upheld, still refused po Haldol ,Haldol IM given as ordered. patient is yelling combative and threatening nurse will going to shelter.
[2020-06-09 20:30] VITALS: BP 94/59
--- NOTE | 2020-06-09 21:45 | NUR ---
Patient in bed.ALert x2 .Refused po HS meds.Explained risk and benefits.Patient still refused and easily gets agitated. Stated he got his shot earlier today and wasn't want any medication at this time and he further stated to leave him alone.Continue safey measures and frequent rounds. Addendum: 06/10/20 at 0512 by BIRDIE FLORENCE RN Patient in bed.ALert x2 .Refused po HS meds.Explained risk and benefits.Patient still refused and easily gets agitated. Stated he got his shot earlier today and doesn't want any medication at this time and he further stated to leave him alone.Continue safety measures and frequent rounds
[2020-06-10] MEDS: LEVOTHYROXINE SODIUM 125 MCG TABLET PO SCH (06:13)
--- NOTE | 2020-06-10 06:16 | NUR ---
Patient slept 9 hrs.Took his po. AM medication Levothyroxine however he kept insisting as long as its not haldol he will take his medication.
[2020-06-10 07:30] VITALS: BP 113/68
--- NOTE | 2020-06-10 07:30 | NUR ---
Received report from DONALD Denise. All questions, comments, and concerns were addressed. Received patient asleep in assigned bed. Bed is in low and locked position.
[2020-06-10] MEDS: DIVALPROEX SPRINKLE 125 MG CAP.SPRINK PO SCH ×4 (08:00→20:20)
[2020-06-10] MEDS: HALOPERIDOL 5 MG TABLET PO SCH ×3 (08:00→20:20)
[2020-06-10] MEDS: PENTOXIFYLLINE 400 MG TABLET.SA PO SCH (08:40)
[2020-06-10] MEDS: ENSURE ENLIVE (VAN) 240 ML LIQUID PO SCH (08:40)
[2020-06-10] MEDS: HALOPERIDOL LACTATE 5 MG/1 ML VIAL IM PRN (08:45)
[2020-06-10] MEDS ORDERED: HALOPERIDOL LACTATE 5 MG/1 ML VIAL IM PRN (11:21)
[2020-06-10 16:53] VITALS: BP 106/59
--- NOTE | 2020-06-10 18:20 | NUR ---
patient is alert and oriented. patient is guarded, dismissive, and becomes easily agitated. patient denies SI/HI, denies AH/VH but noted with paranoid and grandiose delusions. Patient refusing scheduled AM medications. Haldol IM administered per Riese order. patient provided with redirection and reality orientation multiple times. patient encouraged to participate in unit groups and therapeutic milieu. patient provided with education about impulse control.
[2020-06-10 20:40] VITALS: BP 105/64
--- NOTE | 2020-06-11 05:07 | NUR ---
Received patient in his room, irritable, selective with his medication, poor insight and poor judgment. Patient interacts with staff. Patient will remain in a psych faciilty for further environment.
[2020-06-11] MEDS: LEVOTHYROXINE SODIUM 125 MCG TABLET PO SCH (06:30)
[2020-06-11 07:30] VITALS: BP 118/77
[2020-06-11] MEDS: DIVALPROEX SPRINKLE 125 MG CAP.SPRINK PO SCH ×3 (08:00→20:00)
[2020-06-11] MEDS: PENTOXIFYLLINE 400 MG TABLET.SA PO SCH (08:28)
[2020-06-11] MEDS: HALOPERIDOL 5 MG TABLET PO SCH ×3 (08:28→20:52)
[2020-06-11] MEDS: ENSURE ENLIVE (VAN) 240 ML LIQUID PO SCH (08:28)
[2020-06-11] MEDS ORDERED: HALOPERIDOL 0.5 MG TABLET PO ONE (08:45)
[2020-06-11] MEDS: HALOPERIDOL 5 MG TABLET PO ONE ×2 (08:55→09:02)
[2020-06-11] MEDS ORDERED: HALOPERIDOL LACTATE 5 MG/1 ML VIAL IM PRN (09:15)
--- NOTE | 2020-06-11 09:30 | NUR ---
Gps/Art Gilder- Labile mood, irritable, , threw his additional haldol 2.5 mg po across the hallway . Reviewed and explained to patient medications , does not want to listen, explained to patient he is on Reise now, claimed no one willl want to give his injections , they will go to prison . Took 4 staff to assist staff admnistered Haldol 3 mg IM , patient observed threatening behavior. . Hesitant to participate w/ P.T.
[2020-06-11 17:29] VITALS: BP 112/68
[2020-06-11 20:12] VITALS: BP 126/79
--- NOTE | 2020-06-12 05:57 | NUR ---
Pt very agitated when approached to give PO Depakote and Haldol. Refused to take these medications PO. Informed patient that he would then have to be given a Haldol 3mg IM injection per order and he became very agitated stating, "that is illegal, I won't be taking anything." Security was called for safety while administering Haldol IM. Two security guards assisted this RN by holding him down while administering the medication. Afterwards, patient calmed down and stayed in his room. Slept a total of 2.00 hours. Safety and comfort provided. No other issues or concerns at this time, will endorse to day shift.
[2020-06-12] MEDS: LEVOTHYROXINE SODIUM 125 MCG TABLET PO SCH ×2 (06:33→10:29)
[2020-06-12 07:30] VITALS: BP 120/75
[2020-06-12] MEDS: DIVALPROEX SPRINKLE 125 MG CAP.SPRINK PO SCH ×3 (08:00→20:00)
[2020-06-12] MEDS: ENSURE ENLIVE (VAN) 240 ML LIQUID PO SCH (09:00)
--- NOTE | 2020-06-12 09:52 | NUR ---
SNF Referral: This SW faxed patient's clinicals to Jimbo Admin from [facility] ([phone]) for placement option. This SW sent H & P notes, progress notes, and medication list.
--- NOTE | 2020-06-12 09:54 | NUR ---
Individual Therapy: storage worker met with patient for brief counseling to help address patient's presenting problem disorganized thought content. Patient is unable to engage in a meaningful conversation and was resistant to accepting therapy at this time. Patient appeared paranoid and delusional stating "you will all go to halfway". Unable to conduct therapy at this time.
[2020-06-12] MEDS: risperiDONE-M 0.5 MG TAB.RAPDIS PO SCH ×2 (10:27→20:28)
[2020-06-12] MEDS: PENTOXIFYLLINE 400 MG TABLET.SA PO SCH (10:28)
--- NOTE | 2020-06-12 10:30 | NUR ---
Gps/Nurse Midwife- Patient decided wants to take his routine oral medications, claimed he will not take the injections anymore, reviewed with patient routine am medications, vebalized understanding . Checked for cheeking , none noted,, compliance was noted at this time. ,
--- NOTE | 2020-06-12 11:17 | NUR ---
SNF Contact: This SW received a call from Feliciano horner for [facility] ([phone]) who stated they are unable to take pt because of behavioral issues. Feliciano stated he will help to place pt.
--- NOTE | 2020-06-12 12:11 | NUR ---
SNF Contact: This SW received a call from Feliciano horner for [facility] ([phone]) who stated christel Arzate approved pt.
[2020-06-12 16:15] VITALS: BP 109/73
--- NOTE | 2020-06-12 18:12 | NUR ---
Gps/Butter Fat Tester- rRight forearm brusings and skin tear with 1 steri-strip intact. Dressing changed w/ mepilex/foam and secured with tegaderm
[2020-06-12 20:09] VITALS: BP 130/72
[2020-06-13] MEDS: TEMAZEPAM 7.5 MG CAPSULE PO PRN (00:19)
[2020-06-13] MEDS: ACETAMINOPHEN 325 MG TABLET PO PRN ×2 (00:19→06:27)
[2020-06-13] MEDS: LORAZEPAM 0.5 MG TABLET PO PRN (04:24)
--- NOTE | 2020-06-13 05:53 | NUR ---
Received patient sitting in the activity room. Pt was guarded and paranoid when offering evening medications. Refused Depakote yelling "I don't take that pill, I only agree to take two small yellow pills. All you people want to do is inject drugs into me", pt compliant with Risperdal. Pt c/o inability to sleep and requested a sleeping aide. Restoril administered per PRN and slept for 1.45 hours. Pt awake on and off going in and out of their room fixated on not being able to sleep stating "I have a long road trip ahead of me tomorrow, I need to get more sleep." PRN Ativan administered per orders for anxiety. Safety measures in place, and will endorse to oncoming shift.
[2020-06-13] MEDS: LEVOTHYROXINE SODIUM 125 MCG TABLET PO SCH (06:27)
[2020-06-13] MEDS: DIVALPROEX SPRINKLE 125 MG CAP.SPRINK PO SCH ×3 (08:00→20:00)
[2020-06-13] MEDS: PENTOXIFYLLINE 400 MG TABLET.SA PO SCH (08:31)
[2020-06-13] MEDS: ENSURE ENLIVE (VAN) 240 ML LIQUID PO SCH (08:32)
[2020-06-13 08:36] VITALS: BP 124/80
[2020-06-13] MEDS: MAG HYDROX/AL HYDROX/SIMETH 30 ML LIQUID UDC PO PRN (10:28)
[2020-06-13 16:29] VITALS: BP 123/78
--- NOTE | 2020-06-13 16:31 | NUR ---
Gps/Ssas Developer- Noted patient increasing confusion this pm, demanding to have her clothes and shoes, and provide him with a urinal for his flight today. Reoriented patient he is in the Hospital , and he is on hold, patient started to get agitated, insisting he is being released by the Doctor now. . Tried to redirect patient, reoriented pt . gets argumentative with the staff. Continue to monitor behavior . refused to take any prn meds.
--- NOTE | 2020-06-13 17:09 | NUR ---
Gps/Electrolytic Etcher- Stayed in his room most of the time, noted responding to internal stimuli, pt. talking to himself.
[2020-06-13 20:00] VITALS: BP 122/77
[2020-06-13] MEDS: risperiDONE-M 0.5 MG TAB.RAPDIS PO SCH (20:09)
--- NOTE | 2020-06-14 05:10 | NUR ---
Pt asleep at this time, no s/s of distress. Denies SI and pain. Took his Risperdal for HS. Noted to be restless and paranoid before going to sleep. Reoriented. Safety precautions in place, frequent rounds done to ensure safety.
[2020-06-14 07:30] VITALS: BP 125/89
[2020-06-14] MEDS: LEVOTHYROXINE SODIUM 125 MCG TABLET PO SCH (07:45)
[2020-06-14] MEDS: DIVALPROEX SPRINKLE 125 MG CAP.SPRINK PO SCH ×3 (07:45→20:11)
[2020-06-14] MEDS: ENSURE ENLIVE (VAN) 240 ML LIQUID PO SCH (08:16)
[2020-06-14] MEDS: PENTOXIFYLLINE 400 MG TABLET.SA PO SCH (08:38)
[2020-06-14 16:00] VITALS: BP 105/65
[2020-06-14 20:00] VITALS: BP 99/57
[2020-06-14] MEDS: risperiDONE-M 0.5 MG TAB.RAPDIS PO SCH (20:11)
--- NOTE | 2020-06-14 21:39 | NUR ---
Received pt resting in bed. No acute distress noted. Denies SI. Due meds given as ordered. Safety measures maintained. Will continue to monitor.
[2020-06-15] MEDS: LEVOTHYROXINE SODIUM 125 MCG TABLET PO SCH (06:04)
--- NOTE | 2020-06-15 06:53 | NUR ---
Pt refused shower.
[2020-06-15 07:30] VITALS: BP 118/70
[2020-06-15] MEDS: DIVALPROEX SPRINKLE 125 MG CAP.SPRINK PO SCH (08:05)
[2020-06-15] MEDS: PENTOXIFYLLINE 400 MG TABLET.SA PO SCH (08:05)
[2020-06-15] MEDS: ENSURE ENLIVE (VAN) 240 ML LIQUID PO SCH (08:05)
--- NOTE | 2020-06-15 12:20 | NUR ---
Public Guardian Contact: This SW received a call from Deputy South from public guardian office ([phone]) who stated they are closing the case for pt for conservatorship.
[2020-06-15] MEDS: risperiDONE 0.5 MG TABLET PO SCH (13:40)
--- NOTE | 2020-06-15 14:59 | NUR ---
Individual Therapy: bakery worker met with patient for brief counseling to help address patient's presenting problem disorganized thought content. Patient is unable to engage in a meaningful conversation due to paranoia. Patient stated "the government is after me and he placed me here". Patient unable to accept his mental illness. SW unable to conduct therapy at this time.
[2020-06-15 15:40] VITALS: BP 109/71
[2020-06-15 20:45] VITALS: BP 104/70
[2020-06-15] MEDS: risperiDONE-M 0.5 MG TAB.RAPDIS PO SCH (21:08)
[2020-06-16] MEDS: TEMAZEPAM 7.5 MG CAPSULE PO PRN (00:43)
[2020-06-16] MEDS: MAG HYDROX/AL HYDROX/SIMETH 30 ML LIQUID UDC PO PRN (00:43)
[2020-06-16] MEDS: LORAZEPAM 0.5 MG TABLET PO PRN (02:57)
[2020-06-16] MEDS: LEVOTHYROXINE SODIUM 125 MCG TABLET PO SCH (06:26)
[2020-06-16 07:30] VITALS: BP 109/65
[2020-06-16] MEDS: PENTOXIFYLLINE 400 MG TABLET.SA PO SCH (09:35)
[2020-06-16] MEDS: risperiDONE 0.5 MG TABLET PO SCH (09:35)
[2020-06-16] MEDS: ENSURE ENLIVE (VAN) 240 ML LIQUID PO SCH (09:35)
--- NOTE | 2020-06-16 10:17 | NUR ---
Per PT Elina, she is discharging patient from Therapy services as pt is noted to be stable.
[2020-06-16 15:12] VITALS: BP 116/68
[2020-06-16] MEDS: risperiDONE-M 0.5 MG TAB.RAPDIS PO SCH (20:08)
[2020-06-16 20:24] VITALS: BP 132/82
[2020-06-16] MEDS: HYDROCORTISONE 1% OINT 28.35 GM TUBE TOP SCH ×2 (21:00→21:54)
[2020-06-16] MEDS ORDERED: HYDROCORTISONE 1% CREAM 30 GM TUBE TP ONE (21:55)
--- NOTE | 2020-06-17 00:12 | NUR ---
GPS: observed to be awake still at this time. Refused sleeping pill when offered despite explanation of risks vs.benefits x3. Quiet environment provided to facilitate sleep. Delusional and argumentative at times when being re-directed. Safe environment provided.
[2020-06-17] MEDS: LEVOTHYROXINE SODIUM 125 MCG TABLET PO SCH (06:33)
[2020-06-17 07:30] VITALS: BP 112/61
[2020-06-17] MEDS: ENSURE ENLIVE (VAN) 240 ML LIQUID PO SCH (09:30)
[2020-06-17] MEDS: PENTOXIFYLLINE 400 MG TABLET.SA PO SCH (09:31)
[2020-06-17] MEDS: risperiDONE 0.5 MG TABLET PO SCH ×2 (09:31→13:00)
[2020-06-17] MEDS: HYDROCORTISONE 1% OINT 28.35 GM TUBE TOP SCH ×2 (09:49→20:02)
[2020-06-17] MEDS ORDERED: HALOPERIDOL LACTATE 5 MG/1 ML VIAL IM PRN (11:00)
[2020-06-17 16:00] VITALS: BP 120/62
[2020-06-17] MEDS: MEMANTINE HCL 5 MG TABLET PO SCH (20:02)
[2020-06-17] MEDS: risperiDONE-M 0.5 MG TAB.RAPDIS PO SCH (20:02)
[2020-06-17 20:13] VITALS: BP 107/74
[2020-06-18] MEDS: LEVOTHYROXINE SODIUM 125 MCG TABLET PO SCH (06:36)
[2020-06-18 07:30] VITALS: BP 105/68
[2020-06-18] MEDS: risperiDONE 0.5 MG TABLET PO SCH ×2 (09:08→12:51)
[2020-06-18] MEDS: ENSURE ENLIVE (VAN) 240 ML LIQUID PO SCH (09:08)
[2020-06-18] MEDS: MEMANTINE HCL 5 MG TABLET PO SCH ×2 (09:08→20:00)
[2020-06-18] MEDS: PENTOXIFYLLINE 400 MG TABLET.SA PO SCH (09:08)
[2020-06-18] MEDS: HYDROCORTISONE 1% OINT 28.35 GM TUBE TOP SCH ×2 (09:15→20:01)
[2020-06-18 16:00] VITALS: BP 121/63
[2020-06-18] MEDS: MAG HYDROX/AL HYDROX/SIMETH 30 ML LIQUID UDC PO PRN ×2 (17:04→23:22)
[2020-06-18 20:17] VITALS: BP 112/62
[2020-06-19] MEDS: LEVOTHYROXINE SODIUM 125 MCG TABLET PO SCH (06:52)
[2020-06-19 07:30] VITALS: BP 134/87
[2020-06-19] MEDS: PENTOXIFYLLINE 400 MG TABLET.SA PO SCH (08:46)
[2020-06-19] MEDS: risperiDONE 0.5 MG TABLET PO SCH ×2 (08:46→21:20)
[2020-06-19] MEDS: MEMANTINE HCL 5 MG TABLET PO SCH ×2 (08:48→21:20)
[2020-06-19] MEDS: HYDROCORTISONE 1% OINT 28.35 GM TUBE TOP SCH ×2 (08:52→21:20)
[2020-06-19] MEDS: ENSURE ENLIVE (VAN) 240 ML LIQUID PO SCH (08:56)
--- NOTE | 2020-06-19 14:32 | NUR ---
Individual Therapy: show worker met with patient for brief counseling to help address patient's presenting problem disorganized thought content. Patient is unable to engage in a meaningful conversation due to paranoia. He was stating "I have a million dollars in my bank account and I need to go get it". Patient appears confused. This SW was unable to have a proper conversation at this time.
[2020-06-19] MEDS ORDERED: PATIENT MAY USE OWN MED- MD OK IM ONE (17:00)
[2020-06-19 17:24] VITALS: BP 115/72
[2020-06-19 20:00] VITALS: BP 100/73
[2020-06-20] MEDS: LEVOTHYROXINE SODIUM 125 MCG TABLET PO SCH (06:02)
--- NOTE | 2020-06-20 06:08 | NUR ---
Received patient sitting in their room. Patient unable to engage in meaningful conversation. Delusional thought process stating "I have $1.4 million in the [employer] and you are trying to take it from me" Provided the patient with reality orientation and patient continued with delusional thought process. One time Invega IM shot ordered. Provided patient education on medication risks and benefits. Patient refused and became increasingly agitated stating "I am an [place] Citizen and I have rights. I am getting my agricultural inspector. I demand the Pitch Flaker to arrest all of you." Spoke to the patient in a calm manner and explained the process, patient became hostile. Two security guards and two staff members assisted the patient to bed, hands on the patient for 30 seconds and IM shot delivered in the right gluteal. Patient tolerated injection well. Patient became paranoid and fixated on having everyone present arrested and stayed in their room sitting at the edge of the bed stating "I am waiting for them to come transfuse my blood and get it out of my system, I have 12 hours before it takes affect." Offered the patient a sleeping aide and continued to refuse fixated on arresting everyone. Slept 0.00 hours. Safety measures in place and needs met and attended to. Will endorse to oncoming nurse.
[2020-06-20 07:30] VITALS: BP 133/82
[2020-06-20] MEDS: ENSURE ENLIVE (VAN) 240 ML LIQUID PO SCH (09:00)
[2020-06-20] MEDS: risperiDONE 0.5 MG TABLET PO SCH ×2 (10:08→20:52)
[2020-06-20] MEDS: MEMANTINE HCL 5 MG TABLET PO SCH ×2 (10:08→20:52)
[2020-06-20] MEDS: PENTOXIFYLLINE 400 MG TABLET.SA PO SCH (10:08)
[2020-06-20] MEDS: HYDROCORTISONE 1% OINT 28.35 GM TUBE TOP SCH ×2 (10:09→21:00)
[2020-06-20 15:53] VITALS: BP 126/82
[2020-06-20 20:00] VITALS: BP 137/87
[2020-06-20] MEDS: LORAZEPAM 0.5 MG TABLET PO PRN (20:54)
--- NOTE | 2020-06-21 06:01 | NUR ---
Received Pt in his room screaming and agitated, yelling "You need to take me to see a data entry representative, you all are forcing mind altering medications on me, and I refuse to take Midol!" When approached by this continuity writer and asked what was making him yell, Pt looked blankly and denied yelling, then again began yelling about being forced to take Midol. Pt is loud, argumentative, oppositional, disruptive, uncooperative, requires frequent redirection and reminders of unit rules. Pt required extensive prompting to take medications and shouted, "this is the last time I take these goddamn medications, I already took my shot!" Pt reluctantly took medications and stated he would no longer take medications from "Nazis." Education reinforced regarding medication risks and benefits. Pt exhibits pressured speech, elevated affect, and anxious mood. Ativan 0.5mg administered with moderate effect, Pt somewhat calmer. Pt is delusional and tangential, states he has "millions in the bank" and he "will own this place." Verbal redirection and reality orientation provided as needed. Pt denied SI/HI and verbally contracts for safety. Denies pain, VS stable. Snack provided. Slept 5.45 hours. Refused shower.
[2020-06-21] MEDS: LEVOTHYROXINE SODIUM 125 MCG TABLET PO SCH (06:10)
[2020-06-21 07:30] VITALS: BP 99/66
[2020-06-21] MEDS: MEMANTINE HCL 5 MG TABLET PO SCH ×2 (08:46→21:00)
[2020-06-21] MEDS: risperiDONE 0.5 MG TABLET PO SCH ×2 (08:46→21:00)
[2020-06-21] MEDS: PENTOXIFYLLINE 400 MG TABLET.SA PO SCH (08:46)
[2020-06-21] MEDS: HYDROCORTISONE 1% OINT 28.35 GM TUBE TOP SCH ×2 (08:47→20:39)
[2020-06-21] MEDS: ENSURE ENLIVE (VAN) 240 ML LIQUID PO SCH (08:51)
[2020-06-21 15:25] VITALS: BP 90/49
--- NOTE | 2020-06-21 17:59 | NUR ---
patient prompted to take routine Meds,had been able to follow redirection, but.still occ. tends to argue about his Meds. hydrocortisone cream to left side of rashes.
[2020-06-21 20:13] VITALS: BP 101/51
--- NOTE | 2020-06-22 05:40 | NUR ---
Pt sleeping up to this point in the shift, arousable to name. VS stable, no c/o pain. Medications held, Pt appeared sedated. Pt slept and stayed in his room throughout the entire shift.
[2020-06-22] MEDS: LEVOTHYROXINE SODIUM 125 MCG TABLET PO SCH (06:17)
[2020-06-22 07:30] VITALS: BP 114/66
[2020-06-22] MEDS: PENTOXIFYLLINE 400 MG TABLET.SA PO SCH (08:31)
[2020-06-22] MEDS: risperiDONE 0.5 MG TABLET PO SCH ×2 (08:31→20:32)
[2020-06-22] MEDS: MEMANTINE HCL 5 MG TABLET PO SCH ×2 (08:31→20:32)
[2020-06-22] MEDS: ENSURE ENLIVE (VAN) 240 ML LIQUID PO SCH (08:32)
[2020-06-22] MEDS: HYDROCORTISONE 1% OINT 28.35 GM TUBE TOP SCH ×2 (08:32→21:54)
--- NOTE | 2020-06-22 15:14 | NUR ---
Individual Therapy: plastics factory worker met with patient for brief counseling to help address patient's presenting problem disorganized thought content. Patient is unable to engage in a meaningful conversation due to paranoia. He continues to state that the staff is after him. He is fixated on discharge and stated that "nothing is wrong with me, I do not belong here.. you belong with me". He stated "bring my shoes so I can leave". SW unable to provided therapy at this time.
[2020-06-22] MEDS: MAG HYDROX/AL HYDROX/SIMETH 30 ML LIQUID UDC PO PRN ×2 (15:26→20:47)
[2020-06-22 15:55] VITALS: BP 103/50
--- NOTE | 2020-06-22 18:09 | NUR ---
received patient alert and orient x3, prompted to take routine Meds., but.still occ. tends to argue about his Meds.patient with labile mood, and poor insight and judgement hydrocortisone cream to left side of rashes.
[2020-06-22 20:19] VITALS: BP 102/63
--- NOTE | 2020-06-23 02:16 | NUR ---
Received patient in his room resting, no complain of pain. Patient calm and well groomed, took all po medications but with arguments saying "I'll taking this now but tomorrow no more". Patient offered sleeping pill due noted seating on his bed and not sleeping, but refused stated that somebody will come and will pick him up in a few minutes. Patient has no discharge order and no one with come and pick him up. Patient behavior was redirected with some help, cont to monitor.
[2020-06-23] MEDS: LEVOTHYROXINE SODIUM 125 MCG TABLET PO SCH (06:02)
[2020-06-23] MEDS: MAG HYDROX/AL HYDROX/SIMETH 30 ML LIQUID UDC PO PRN ×2 (07:05→11:53)
[2020-06-23 07:30] VITALS: BP 123/63
[2020-06-23] MEDS: risperiDONE 0.5 MG TABLET PO SCH ×3 (08:00→20:23)
[2020-06-23] MEDS: MEMANTINE HCL 5 MG TABLET PO SCH ×3 (08:56→20:23)
[2020-06-23] MEDS: ENSURE ENLIVE (VAN) 240 ML LIQUID PO SCH (08:56)
[2020-06-23] MEDS: PENTOXIFYLLINE 400 MG TABLET.SA PO SCH (08:56)
[2020-06-23] MEDS: HYDROCORTISONE 1% OINT 28.35 GM TUBE TOP SCH ×2 (08:57→20:35)
[2020-06-23 15:56] VITALS: BP 106/67
--- NOTE | 2020-06-23 17:13 | NUR ---
Patient refuse 2 morning medication despite of encouragement and education. no behavioral issue, no agitation noted. will continue monitor
[2020-06-23 20:19] VITALS: BP 98/62
--- NOTE | 2020-06-24 05:47 | NUR ---
Pt awake at this time, no complaints of pain. Denies SI and pain. Compliant with meds during the shift. Slept for 3.45 hrs, stayed in his room most of the night. Safety precautions in place, frequent rounds done to ensure safety.
[2020-06-24] MEDS: LEVOTHYROXINE SODIUM 125 MCG TABLET PO SCH (06:03)
[2020-06-24 07:30] VITALS: BP 110/80
--- NOTE | 2020-06-24 08:00 | NUR ---
DR DONATO HERE TO SEE PATIENT DUE MEDICATIONS GIVEN AT THIS TIME AND IT TOOK EXCESS OF 10 MINUTES FOR PATIENT TO TAKE THE MEDICATIONS HE WAS VERY ARGUMENTATIVE STATED THAT HE SHOULD NOT BE TAKING THESE MEDICATIONS AND HE SHOULD NOT BE HERE AND THE DOCTOR SHOULD BE THE ONE TAKING THE MEDICATIONS WILL CONTINUE TO OBSERVE AND STRESS COMPLIANCE OF HIS MEDICATIONS ORDERED.
[2020-06-24] MEDS: MEMANTINE HCL 5 MG TABLET PO SCH ×2 (08:01→20:28)
[2020-06-24] MEDS: PENTOXIFYLLINE 400 MG TABLET.SA PO SCH (08:02)
[2020-06-24] MEDS: risperiDONE 0.5 MG TABLET PO SCH ×2 (08:02→20:28)
[2020-06-24] MEDS: ENSURE ENLIVE (VAN) 240 ML LIQUID PO SCH (08:02)
[2020-06-24] MEDS: HYDROCORTISONE 1% OINT 28.35 GM TUBE TOP SCH ×2 (09:45→21:52)
--- NOTE | 2020-06-24 15:15 | NUR ---
Individual Therapy: floor worker well service met with patient for brief counseling to help address patient's presenting problem disorganized thought content. Patient is unable to engage in a meaningful conversation due to paranoia. He continues to be fixated on discharged and wants to leave. SW unable to provide therapy at this time.
[2020-06-24 16:00] VITALS: BP 111/72
--- NOTE | 2020-06-24 18:00 | NUR ---
IN ROOM EATING DINNED SEEMS MORE HAPPY IS NOT ARGUMENTATIVE SEEMS TO BE ENJOYING HIS DINNER WILL CONTINUE TO PROVIDE SAFE AND THERAPEUTIC ENVIRONMENT AT ALL TIMES
[2020-06-24 20:23] VITALS: BP 128/75
[2020-06-24] MEDS: MAG HYDROX/AL HYDROX/SIMETH 30 ML LIQUID UDC PO PRN (20:28)
--- NOTE | 2020-06-24 23:58 | NUR ---
PATIENT ALERT ORIENTED, COMPLAIN OF INABILITY TO SLEEP BUT REFUSED TO TAKE SLEEPING PILL, GIVEN SNACK AND JUICE, PROVIDE DIM AND QUIET ENVIRONMENT. CONT TO MONITOR.
--- NOTE | 2020-06-25 04:56 | NUR ---
Patient in bed asleep but easily arousable, calm and cooperative with care, Patient has no complain of pain, cont to monitor.
[2020-06-25] MEDS: LEVOTHYROXINE SODIUM 125 MCG TABLET PO SCH (06:15)
[2020-06-25 07:30] VITALS: BP 126/77
--- NOTE | 2020-06-25 07:40 | NUR ---
IN BED SLEEPING AT THIS TIME AROUSABLE WHEN NAME IS CALLED ALERT AND ORIENTED DENIES SI OR HI WILL CONTINUE TO PROVIDE SAFE AND THERAPEUTIC ENVIRONMENT AT ALL TIMES.
[2020-06-25] MEDS: PENTOXIFYLLINE 400 MG TABLET.SA PO SCH (08:36)
[2020-06-25] MEDS: MEMANTINE HCL 5 MG TABLET PO SCH ×2 (08:37→20:45)
[2020-06-25] MEDS: HYDROCORTISONE 1% OINT 28.35 GM TUBE TOP SCH ×2 (08:37→20:45)
[2020-06-25] MEDS: risperiDONE 0.5 MG TABLET PO SCH ×2 (08:37→20:45)
[2020-06-25] MEDS: ENSURE ENLIVE (VAN) 240 ML LIQUID PO SCH (08:37)
--- NOTE | 2020-06-25 09:11 | NUR ---
SW Family Contact: This SW contacted patient's brother Chris ([phone]) and left a voicemail if he can have a conversation with pt to have him understand that he has place to go and if he is willing to accept to go to [facility].
--- NOTE | 2020-06-25 11:32 | NUR ---
SW Note: This SW met with patient to discuss discharge plan. Patient appeared paranoid and delusional. He stated that the cleaner greaser's department will come and get him today. This SW attempted to re-direct him into reality and educate him that he is at a psychiatric unit. This SW expressed that this rewriter found him a nursing facility called [facility]. He appeared to be somewhat agreeable with it.
[2020-06-25] MEDS ORDERED: PATIENT MAY USE OWN MED- MD OK XX ONE (15:00)
--- NOTE | 2020-06-25 15:00 | NUR ---
DR ROWE HERE AND SEEN PATIENT WITH NEW ORDERS AND NOTED PATIENT IS STILL DELUSIONAL STATED THAT THE POLICE/ ARE COMINY FOR HIM TODAY FOR DISCHARGE REEDUCATED HIM THAT HE WILL BE HERE UNTIL HE IS DISCHARGED BY HIS DOCTOR.WILL CONTINUE TO PROVIDE SAFE AND THERAPEUTIC ENVIRONMENT AT ALL TIMES.
[2020-06-25 16:00] VITALS: BP 130/86
--- NOTE | 2020-06-25 18:00 | NUR ---
PATIENT HAS AN INTRAMUSCULAR INJECTION ORDER FOR INVEGA SUSTENA PATIENT AWARE WILL TRY TO ADMINSTER SOON HE IS DONE WITH HIS DINNER.
--- NOTE | 2020-06-25 19:05 | NUR ---
ANDREINA FAYE GIVEN INTRAMUSCULR ORDERED NO RESISITANCE AT ALL FROM PATIENT MADE COMFORTABLE AND ENDORSED.
[2020-06-25 20:06] VITALS: BP 124/69
[2020-06-25] MEDS: MAG HYDROX/AL HYDROX/SIMETH 30 ML LIQUID UDC PO PRN (20:45)
[2020-06-26] MEDS: MAG HYDROX/AL HYDROX/SIMETH 30 ML LIQUID UDC PO PRN ×2 (03:32→16:10)
[2020-06-26] MEDS: LEVOTHYROXINE SODIUM 125 MCG TABLET PO SCH (06:00)
--- NOTE | 2020-06-26 06:24 | NUR ---
Patient slept 3.30 hours.
[2020-06-26 07:30] VITALS: BP 115/74
--- NOTE | 2020-06-26 07:40 | NUR ---
Awake, alert, came from the bathroom, calm and cooperative
[2020-06-26] MEDS: PENTOXIFYLLINE 400 MG TABLET.SA PO SCH (08:29)
[2020-06-26] MEDS: HYDROCORTISONE 1% OINT 28.35 GM TUBE TOP SCH ×3 (08:29→20:17)
[2020-06-26] MEDS: MEMANTINE HCL 5 MG TABLET PO SCH (08:29)
[2020-06-26] MEDS: risperiDONE 0.5 MG TABLET PO SCH (08:29)
[2020-06-26] MEDS: ENSURE ENLIVE (VAN) 240 ML LIQUID PO SCH (08:30)
--- NOTE | 2020-06-26 10:37 | NUR ---
Alert, oriented x 4, calm and compliant with taking of medications. With fair appetite
--- NOTE | 2020-06-26 11:23 | NUR ---
WEN EARLY ENTRY DISCHARGE NOTE: [facility] [place] [address] ([phone]) via ambulance transportation at 1PM. Bar Examiner spoke with Jimbo, Magnet Maker at [facility] ([phone]), and he confirmed that patient will be accepted at their facility today. Patients brother Chris ([phone]) is aware and agreeable with discharge. Patient is alert and oriented x1. Patient is not able to plan for self-care at this time but is willing to accept care provided for his at the facility. Patient denies suicidal or homicidal ideation. Patient is aware and agreeable with discharge plans. Patient presents with appropriate mood and congruent affect. Patient will follow-up with (Psychiatrist) Dr. Andrade and (Estimator Jewelry) Dr. Saldaña at [facility]. Patient signed the homeless waiver upon discharge and a copy was placed in the chart. Homeless resources were provided and include [address] line for shelters and homeless resources. A copy of all resources given to patient was also placed in the chart. Patient presented with euthymic mood and congruent affect. Addendum: 06/26/20 at 1603 by WEN BURCIAGA Discharge canceled due to patient being aggressive towards doctor Andrade. Doctor Andrade canceled discharge.
--- NOTE | 2020-06-26 11:26 | NUR ---
SW Family Contact: This SW contacted patients brother Chris ([phone]) and left a voicemail that pt will be discharged to [facility] on 06/27.
--- NOTE | 2020-06-26 13:40 | NUR ---
Stayed mostly in his room. Sleeping at this time, comfortable
--- NOTE | 2020-06-26 16:30 | NUR ---
Pateint became angry and agitated towards Dr. Andraed, yelling
[2020-06-26] MEDS ORDERED: risperiDONE 0.5 MG TABLET PO SCH (17:00)
[2020-06-26 17:23] VITALS: BP 113/67
[2020-06-26] MEDS: risperiDONE 1 MG TABLET PO SCH (17:54)
--- NOTE | 2020-06-26 18:21 | NUR ---
Calmer and compliant with taking medication
[2020-06-26] MEDS ORDERED: MEMANTINE HCL 5 MG TABLET PO SCH (21:00)
[2020-06-27] MEDS: LEVOTHYROXINE SODIUM 125 MCG TABLET PO SCH (06:00)
--- NOTE | 2020-06-27 06:32 | NUR ---
Patient slept a total of 4.30 hours.
[2020-06-27 07:30] VITALS: BP 124/71
[2020-06-27] MEDS: risperiDONE 1 MG TABLET PO SCH ×2 (09:03→17:12)
[2020-06-27] MEDS: MEMANTINE HCL 10 MG TABLET PO SCH ×2 (09:03→19:57)
[2020-06-27] MEDS: PENTOXIFYLLINE 400 MG TABLET.SA PO SCH (09:03)
[2020-06-27] MEDS: ENSURE ENLIVE (VAN) 240 ML LIQUID PO SCH (09:04)
[2020-06-27] MEDS: HYDROCORTISONE 1% OINT 28.35 GM TUBE TOP SCH ×2 (09:04→19:57)
[2020-06-27 16:00] VITALS: BP 127/70
[2020-06-27 20:00] VITALS: BP 125/69
--- NOTE | 2020-06-28 06:09 | NUR ---
Received patient in his room. Awake and alert and proceeding to tell this consumer loan underwriter a long story about all the money he has and how we should be put in penitentiary because he does not belong here etc.. The patient hears voices and gets angry very easily. Patient did however agree to take a shower, which was the first one in 15 days. Casework Supervisor noticed reluctance by the patient to take any medications despite encouragement. The patient slept 4.45 hours last night. Continuing to monitor for safety and any behavior escalation.
[2020-06-28] MEDS: LEVOTHYROXINE SODIUM 125 MCG TABLET PO SCH (06:27)
--- NOTE | 2020-06-28 08:00 | NUR ---
Received pt. sleeping easily arousable, follows commands, compliant with medications, and nursing care. Ambulatory no c/of pain. Will continue with care plan.
[2020-06-28 08:31] VITALS: BP 144/77
[2020-06-28] MEDS: risperiDONE 1 MG TABLET PO SCH ×2 (08:31→17:41)
[2020-06-28] MEDS: MEMANTINE HCL 10 MG TABLET PO SCH ×2 (08:31→20:34)
[2020-06-28] MEDS: HYDROCORTISONE 1% OINT 28.35 GM TUBE TOP SCH ×2 (08:31→20:34)
[2020-06-28] MEDS: ENSURE ENLIVE (VAN) 240 ML LIQUID PO SCH (08:33)
[2020-06-28] MEDS: PENTOXIFYLLINE 400 MG TABLET.SA PO SCH (08:33)
[2020-06-28 20:26] VITALS: BP 103/64
[2020-06-29] MEDS: LEVOTHYROXINE SODIUM 125 MCG TABLET PO SCH (06:26)
[2020-06-29 08:30] VITALS: BP 93/59
[2020-06-29] MEDS: PENTOXIFYLLINE 400 MG TABLET.SA PO SCH (08:53)
[2020-06-29] MEDS: MEMANTINE HCL 10 MG TABLET PO SCH ×2 (08:53→20:32)
[2020-06-29] MEDS: risperiDONE 1 MG TABLET PO SCH ×2 (08:53→17:07)
[2020-06-29] MEDS: ENSURE ENLIVE (VAN) 240 ML LIQUID PO SCH (08:54)
[2020-06-29] MEDS: HYDROCORTISONE 1% OINT 28.35 GM TUBE TOP SCH ×2 (08:55→20:32)
[2020-06-29] MEDS: OXCARBAZEPINE 150 MG TABLET PO SCH ×2 (12:51→17:07)
[2020-06-29 15:08] VITALS: BP 109/62
--- NOTE | 2020-06-29 15:30 | NUR ---
Individual Therapy: medical office worker met with patient for brief counseling to help address patient's presenting problem disorganized thought content. Patient was asleep and did not want to conduct therapy at this time.
[2020-06-30] MEDS: MAG HYDROX/AL HYDROX/SIMETH 30 ML LIQUID UDC PO PRN (00:52)
[2020-06-30] MEDS: ACETAMINOPHEN 325 MG TABLET PO PRN (02:07)
[2020-06-30] MEDS: LORAZEPAM 0.5 MG TABLET PO PRN (02:07)
[2020-06-30] MEDS: LEVOTHYROXINE SODIUM 125 MCG TABLET PO SCH (06:08)
[2020-06-30 07:30] VITALS: BP 118/55
--- NOTE | 2020-06-30 08:00 | NUR ---
Discharge Note: Patient will be discharged to [facility], [facility] [place] [address] ([phone]) via ambulance transportation at 1PM. Helpdesk Technician spoke with Jimbo, Prior Authorization Nurse at [facility] ([phone]), and he confirmed that patient will be accepted at their facility today. Patients brother Chris ([phone]) is aware and agreeable with discharge. Patient is alert and oriented x1. Patient is not able to plan for self-care at this time but is willing to accept care provided for his at the facility. Patient denies suicidal or homicidal ideation. Patient is aware and agreeable with discharge plans. Patient presents with appropriate mood and congruent affect. Patient will follow-up with (Psychiatrist) Dr. Andrade and (Shaping Machine Tender) Dr. Saldaña at [facility]. Patient signed the homeless waiver upon discharge and a copy was placed in the chart. Homeless resources were provided and include [address] information line for shelters and homeless resources. A copy of all resources given to patient was also placed in the chart. Patient presented with euthymic mood and congruent affect.
[2020-06-30] MEDS: risperiDONE 1 MG TABLET PO SCH (08:33)
[2020-06-30] MEDS: MEMANTINE HCL 10 MG TABLET PO SCH (08:33)
[2020-06-30] MEDS: OXCARBAZEPINE 150 MG TABLET PO SCH ×2 (08:33→12:20)
[2020-06-30] MEDS: ENSURE ENLIVE (VAN) 240 ML LIQUID PO SCH (08:34)
[2020-06-30] MEDS: PENTOXIFYLLINE 400 MG TABLET.SA PO SCH (08:34)
[2020-06-30] MEDS: HYDROCORTISONE 1% OINT 28.35 GM TUBE TOP SCH (08:35)
[2020-06-30 09:05] LABS: BASOPHILS % (AUTO) 0.2 % (0.0-2.0); EOSINOPHILS # (AUTO) 0.2 K/uL (0.0-0.7); EOSINOPHILS % (AUTO) 2.8 % (0.0-7.0); HEMATOCRIT 40.8 % (36.7-47.1); HEMOGLOBIN 13.4 g/dL (12.5-16.3); LYMPHOCYTES % (AUTO) 18.1 % (20.5-51.5); MEAN CORPUSCULAR HGB CONC 33 g/dL (32.5-36.3); MEAN CORPUSCULAR VOLUME 91.4 fL (73.0-96.2); MONOCYTES # (AUTO) 0.6 K/uL (2.0-10.0); MONOCYTES % (AUTO) 10.5 % (0.0-11.0); NEUTROPHILS # (AUTO) 3.6 K/uL (1.8-8.9); NEUTROPHILS % (AUTO) 68.4 % (38.5-71.5); PLATELET COUNT (AUTO) 227 K/uL (152-348); RED BLOOD CELL COUNT(AUTO) 4.46 MIL/uL (4.06-5.63); WHITE BLOOD COUNT (AUTO) 5.3 K/uL (3.6-10.2)
[2020-06-30 09:10] LABS: BILIRUBIN,TOTAL 0.3 mg/dL (0.2-1.0); CREATININE 0.9 mg/dL (0.6-1.3); POTASSIUM 4.2 mmol/L (3.5-5.1); TOTAL PROTEIN, SERUM 7.3 g/dL (6.4-8.2)
--- NOTE | 2020-06-30 13:45 | NUR ---
GPS: Nursing Notes: Discharge Notes: Patient is awake and responding to his name, compliant with his medications, needs prompting to be cooperative with nursing care, denies SI/HI, denies AH/VH, denies pain or discomfort at this time, refusing for picture to be taken of his chest - slight redness around his neck, compliant with his Hydrocortisone cream, discharge to [facility] [place], [place] [id number] . Report given to facility's nurse - kel Ferreira SW and WEN Collazo, facility will flower buncher or picker his belongiings on Monday, transfer to facility via ambulance. Patient's brother - Chris informed of discharge by social insurance analyst. Patient will follow-up with (Psychiatrist) Dr. Andrade and (Ripsaw Grader) Dr. Saldaña at [facility]. Patient signed the homeless waiver upon discharge and a copy was placed in the chart. Homeless resources were provided and include [address] information line for shelters and homeless resources. A copy of all resources given to patient was also placed in the chart.
== END 2020-06-30 13:45 | DRG 885 ==
LOC: ER 20:38 → GPS 21:59
PROVIDERS: ADMIT Psychiatry & Neurology Psychosomatic Medicine; ATTEND Registered Nurse
DX: F25.9 Schizoaffective disorder, unspecified (principal); F01.50 Vascular dementia, unspecified severity, without behavioral disturbance, psychotic disturbance, mood disturbance, and anxiety; D68.59 Other primary thrombophilia; Z59.0 Homelessness; E03.9 Hypothyroidism, unspecified; R62.7 Adult failure to thrive; Z68.22 Body mass index [BMI] 22.0-22.9, adult; E78.5 Hyperlipidemia, unspecified; M19.90 Unspecified osteoarthritis, unspecified site; Z91.19 Patient's noncompliance with other medical treatment and regimen; I10 Essential (primary) hypertension; Z20.822 Contact with and (suspected) exposure to COVID-19; F29 Unspecified psychosis not due to a substance or known physiological condition; Z96.642 Presence of left artificial hip joint; Z85.71 Personal history of Hodgkin lymphoma
CPT/HCPCS: 36415; 84443; 85025; 93005; A4663; J1630

== ENCOUNTER 2023-07-11 15:46 | Inpatient (IN) | payer MEDICARE, OTHER ==
[~2023-07-11] VITALS: Ht 170.2 cm; Wt 68.0 kg
[~2023-07-11 15:46] MED LIST changes: +LEVO125C4 PO; -LEVOTHYROXINE PO; +PENT400T17 PO
[2023-07-11] MEDS: methylPREDNISolone SOD SUCC 125 MG/2 ML VIAL IV ONE (16:00)
[2023-07-11] MEDS ORDERED: ALBUTEROL SULFATE 2.5 MG/ 0.5 ML NEBU ONE (16:18)
[2023-07-11] MEDS ORDERED: IPRATROPIUM BROMIDE 0.5 MG/2.5 ML NEBU ONE (16:18)
[2023-07-11 16:20] VITALS: O2SAT 94
[2023-07-11 16:27] LABS: BASOPHILS % (AUTO) 0.3 % (0.0-2.0); DIFFERENTIAL COMMENT 1; EOSINOPHILS # (AUTO) 0.2 K/uL (0.0-0.7); EOSINOPHILS % (AUTO) 3.8 % (0.0-7.0); HEMATOCRIT 44.7 % (36.7-47.1); HEMOGLOBIN 14.6 g/dL (12.5-16.3); MEAN CORPUSCULAR HEMOGLOBIN 29.5 uug (23.8-33.4); MEAN CORPUSCULAR HGB CONC 33 g/dL (32.5-36.3); MEAN CORPUSCULAR VOLUME 90.2 fL (73.0-96.2); MONOCYTES # (AUTO) 0.7 K/uL (0.1-1.30); MONOCYTES % (AUTO) 11.2 % (0.0-11.0); NEUTROPHILS # (AUTO) 4.1 K/uL (1.8-8.9); NEUTROPHILS % (AUTO) 68.7 % (38.5-71.5); PLATELET COUNT (AUTO) 220 K/uL (152-348); RED BLOOD CELL COUNT(AUTO) 4.96 MIL/uL (4.06-5.63); WHITE BLOOD COUNT (AUTO) 5.9 K/uL (3.6-10.2)
[2023-07-11] MEDS: ALBUTEROL SULFATE 2.5 MG/3 ML NEBU NEB ONE (16:30)
[2023-07-11] MEDS: IPRATROPIUM BROMIDE 0.5 MG/2.5 ML NEBU NEB ONE (16:30)
[2023-07-11] MEDS ORDERED: IBUP-2314 PO (16:40)
[2023-07-11] MEDS ORDERED: MAGN400O6 PO (16:40)
[2023-07-11] MEDS ORDERED: OXCA150T5 PO (16:40)
[2023-07-11] MEDS ORDERED: BISA10SU61 RC (16:40)
[2023-07-11] MEDS ORDERED: LATA2.5D2 EACHEYE (16:40)
[2023-07-11] MEDS ORDERED: MELA10CA PO (16:40)
[2023-07-11] MEDS ORDERED: LEVO125T8 PO (16:40)
[2023-07-11] MEDS ORDERED: ACET325C7 PO (16:40)
[2023-07-11] MEDS ORDERED: GABA600T12 PO (16:40)
[2023-07-11] MEDS ORDERED: POLY30DR EACHEYE (16:40)
[2023-07-11] MEDS ORDERED: BENZ0.5T43 PO (16:40)
[2023-07-11] MEDS ORDERED: RISP1TAB7 PO (16:40)
[2023-07-11] MEDS ORDERED: RISP0.5T5 PO (16:40)
[2023-07-11] MEDS ORDERED: DOCU100C36 PO (16:40)
[2023-07-11] MEDS ORDERED: MEMA10TA PO (16:40)
[2023-07-11] MEDS ORDERED: methylPREDNISolone SOD SUCC 125 MG/2 ML VIAL ONE (16:42)
[2023-07-11 16:50] LABS: ALANINE AMINOTRANSFERASE 33 U/L (16-63); ALBUMIN 3.4 g/dL (3.4-5.0); ALKALINE PHOSPHATASE 127 U/L (50-136); ASPARTATE AMINOTRANSFERASE 13 U/L (15-37); BILIRUBIN,DIRECT 0.2 mg/dL (0.0-0.2); BILIRUBIN,TOTAL 0.4 mg/dL (0.2-1.0); CALCIUM 9.1 mg/dL (8.5-10.1); CARBON DIOXIDE 27 mmol/L (21-32); CHLORIDE 103 mmol/L (98-107); CREATININE 0.8 mg/dL (0.6-1.3); GLUCOSE 99 mg/dL (74-106); NT-PRO BNP 168 pg/mL (0-125); POTASSIUM 4.1 mmol/L (3.5-5.1); SODIUM SERUM 137 mmol/L (136-145); TOTAL PROTEIN, SERUM 7.7 g/dL (6.4-8.2); UREA NITROGEN, BLOOD 18 mg/dL (7-18)
[2023-07-11 16:55] VITALS: O2SAT 97
[2023-07-11] MEDS ORDERED: ALBUTEROL SULFATE 2.5 MG/ 0.5 ML NEBU NEB PRN (18:00)
[2023-07-11] MEDS ORDERED: IBUPROFEN 200 MG TABLET PO PRN (18:00)
[2023-07-11] MEDS ORDERED: MAGNESIUM HYDROXIDE 30 ML LIQUID UDC PO PRN (18:00)
[2023-07-11] MEDS ORDERED: REMEDY ESSENTIAL ZINC PASTE 113 GM TP PRN (18:00)
[2023-07-11] MEDS ORDERED: BISACODYL 10 MG SUPP.RECT RC PRN (18:00)
[2023-07-11] MEDS ORDERED: Melatonin 10 MG) PO SCH (21:00)
[2023-07-11 22:45] VITALS: BP 98/61; TEMP 98; O2SAT 94
[2023-07-11] MEDS: risperiDONE 1 MG TABLET PO SCH (23:10)
[2023-07-12] MEDS: methylPREDNISolone SOD SUCC 40 MG/ML VIAL IV SCH (00:49)
[2023-07-12] MEDS: ACETAMINOPHEN 325 MG TABLET PO PRN (01:58)
[2023-07-12] MEDS: ZOLPIDEM 5 MG TABLET PO PRN (01:59)
[2023-07-12 04:00] VITALS: BP 100/60; TEMP 97.9; O2SAT 94
[2023-07-12] MEDS: MAG HYDROX/AL HYDROX/SIMETH 30 ML LIQUID UDC PO PRN (05:02)
[2023-07-12 06:00] VITALS: BP 105/65; TEMP 98; O2SAT 95
[2023-07-12 07:28] LABS: CALCIUM 9.4 mg/dL (8.5-10.1); CREATININE 1.2 mg/dL (0.6-1.3); MAGNESIUM 2.2 mg/dL (1.8-2.4); PHOSPHOROUS 2.5 mg/dL (2.5-4.9); POTASSIUM 3.6 mmol/L (3.5-5.1)
[2023-07-12 08:24] LABS: HEMATOCRIT 41.1 % (36.7-47.1); HEMOGLOBIN 13.6 g/dL (12.5-16.3); LYMPHOCYTES # (AUTO) 0.4 K/uL (0.8-4.8); LYMPHOCYTES % (AUTO) 3.3 % (20.5-51.5); MEAN CORPUSCULAR HEMOGLOBIN 29.8 uug (23.8-33.4); MEAN CORPUSCULAR HGB CONC 33 g/dL (32.5-36.3); MEAN CORPUSCULAR VOLUME 90.2 fL (73.0-96.2); MONOCYTES # (AUTO) 0.3 K/uL (0.1-1.30); MONOCYTES % (AUTO) 2.1 % (0.0-11.0); NEUTROPHILS # (AUTO) 11.3 K/uL (1.8-8.9); NEUTROPHILS % (AUTO) 94.6 % (38.5-71.5); PLATELET COUNT (AUTO) 218 K/uL (152-348); RED BLOOD CELL COUNT(AUTO) 4.56 MIL/uL (4.06-5.63); RED CELL DISTRIBUTION WIDTH 13.8 % (12.1-16.2)
[2023-07-12] MEDS: MEMANTINE HCL 10 MG TABLET PO SCH (09:26)
[2023-07-12] MEDS: GABAPENTIN 300 MG CAPSULE PO SCH (09:26)
[2023-07-12] MEDS: OXCARBAZEPINE 150 MG TABLET PO SCH (09:26)
[2023-07-12] MEDS: BENZTROPINE MESYLATE 0.5 MG TABLET PO SCH (09:26)
[2023-07-12] MEDS: risperiDONE 0.5 MG TABLET PO SCH (09:26)
[2023-07-12] MEDS: LEVOTHYROXINE SODIUM 125 MCG TABLET PO SCH (09:27)
[2023-07-12] MEDS: DOCUSATE SODIUM 100 MG CAPSULE PO SCH (09:27)
[2023-07-12] MEDS: AZITHROMYCIN 250 MG TABLET PO SCH (11:18)
[2023-07-12 11:30] VITALS: BP 111/62; TEMP 97.6; O2SAT 94
[2023-07-12] MEDS ORDERED: IBUPROFEN 600 MG TABLET PO PRN (11:45)
[2023-07-12] MEDS: ONDANSETRON 4 MG/2 ML VIAL IV PRN (12:39)
[2023-07-12 15:09] VITALS: BP 105/66; TEMP 98.2; O2SAT 92
[2023-07-12] MEDS: MELATONIN 3 MG TABLET PO SCH (20:57)
[2023-07-12] MEDS: MAGNESIUM HYDROXIDE 30 ML LIQUID UDC PO PRN (20:59)
[2023-07-12 21:17] VITALS: BP 120/61; TEMP 97.8; O2SAT 92
[2023-07-13 06:26] VITALS: BP 108/81; TEMP 97.5; O2SAT 96
[2023-07-13] MEDS: LEVOTHYROXINE SODIUM 125 MCG TABLET PO SCH (06:42)
[2023-07-13 07:09] LABS: HEMOGLOBIN 12.7 g/dL (12.5-16.3); LYMPHOCYTES # (AUTO) 0.7 K/uL (0.8-4.8); LYMPHOCYTES % (AUTO) 3.2 % (20.5-51.5); MEAN CORPUSCULAR HEMOGLOBIN 29.3 uug (23.8-33.4); MEAN CORPUSCULAR HGB CONC 33 g/dL (32.5-36.3); MEAN CORPUSCULAR VOLUME 89.7 fL (73.0-96.2); MONOCYTES # (AUTO) 1.1 K/uL (0.1-1.30); MONOCYTES % (AUTO) 5.1 % (0.0-11.0); NEUTROPHILS # (AUTO) 20.1 K/uL (1.8-8.9); NEUTROPHILS % (AUTO) 91.7 % (38.5-71.5); PLATELET COUNT (AUTO) 234 K/uL (152-348); RED BLOOD CELL COUNT(AUTO) 4.35 MIL/uL (4.06-5.63); RED CELL DISTRIBUTION WIDTH 14.2 % (12.1-16.2); WHITE BLOOD COUNT (AUTO) 21.9 K/uL (3.6-10.2)
[2023-07-13 07:15] LABS: DIFFERENTIAL COMMENT 1
[2023-07-13 07:21] LABS: CALCIUM 9.1 mg/dL (8.5-10.1); CREATININE 0.9 mg/dL (0.6-1.3); POTASSIUM 4.7 mmol/L (3.5-5.1)
[2023-07-13 11:25] VITALS: BP 109/68; TEMP 98.4; O2SAT 94
[2023-07-13 15:22] VITALS: BP 108/65; TEMP 97.6; O2SAT 94
[2023-07-13 20:00] VITALS: BP 112/74; TEMP 98; O2SAT 93
[2023-07-14 06:51] VITALS: BP 100/60; TEMP 97.3; O2SAT 98
[2023-07-14 06:55] LABS: CALCIUM 8.8 mg/dL (8.5-10.1); CREATININE 0.7 mg/dL (0.6-1.3); POTASSIUM 4.1 mmol/L (3.5-5.1)
[2023-07-14] MEDS: predniSONE 20 MG TABLET PO SCH (08:20)
[2023-07-14] MEDS ORDERED: AZIT250T13 PO (09:17)
[2023-07-14] MEDS ORDERED: PRED20TA PO (09:17)
[2023-07-14 11:55] VITALS: BP 118/62; TEMP 97.8; O2SAT 96
== END 2023-07-14 13:46 | DRG 190 ==
LOC: ER 15:46 → MEDSURG3 22:00
PROVIDERS: ADMIT Internal Medicine; ATTEND Internal Medicine
DX: J44.1 Chronic obstructive pulmonary disease with (acute) exacerbation (principal); N17.0 Acute kidney failure with tubular necrosis; F03.92 Unspecified dementia, unspecified severity, with psychotic disturbance; R62.7 Adult failure to thrive; Z68.23 Body mass index [BMI] 23.0-23.9, adult; E03.9 Hypothyroidism, unspecified; G40.909 Epilepsy, unspecified, not intractable, without status epilepticus; Z79.890 Hormone replacement therapy; F03.90 Unspecified dementia, unspecified severity, without behavioral disturbance, psychotic disturbance, mood disturbance, and anxiety; Z11.52 Encounter for screening for COVID-19; D72.829 Elevated white blood cell count, unspecified; T38.0X5A Adverse effect of glucocorticoids and synthetic analogues, initial encounter; Y92.230 Patient room in hospital as the place of occurrence of the external cause; Z79.899 Other long term (current) drug therapy; Z80.7 Family history of other malignant neoplasms of lymphoid, hematopoietic and related tissues; Z85.72 Personal history of non-Hodgkin lymphomas; J44.0 Chronic obstructive pulmonary disease with (acute) lower respiratory infection; J20.9 Acute bronchitis, unspecified; Z96.642 Presence of left artificial hip joint
CPT/HCPCS: 36415; 71045; 83605; 83735; 84100; 84484; 85025; 87040; 93005; G0378; J2405; J2919; J3590; J7512; Q0144